=== PATIENT | female | born 1965 | race Two or more races ===

== ENCOUNTER 2016-06-30 08:41 | Outpatient (CLI) | payer OTHER, MEDICAID | END 2016-06-30 08:42 | disposition home or self-care (01) | DX: N18.9 Chronic kidney disease, unspecified (principal); D63.1 Anemia in chronic kidney disease; E11.65 Type 2 diabetes mellitus with hyperglycemia ==

== ENCOUNTER 2016-08-01 13:01 | Outpatient (CLI) | payer OTHER, MEDICAID | END 2016-08-01 13:02 | disposition home or self-care (01) | DX: N18.4 Chronic kidney disease, stage 4 (severe) (principal) ==

== ENCOUNTER 2016-10-07 09:48 | Outpatient (CLI) | payer MEDICAID, OTHER | END 2016-10-07 09:49 | disposition home or self-care (01) | DX: E11.65 Type 2 diabetes mellitus with hyperglycemia (principal) ==

== ENCOUNTER 2016-10-13 07:10 | Outpatient (CLI) | payer OTHER | END 2016-10-13 07:11 | disposition home or self-care (01) | DX: E87.5 Hyperkalemia (principal) ==

== ENCOUNTER 2016-11-18 10:28 | Outpatient (CLI) | payer MEDICAID, OTHER ==
[2016-11-18 13:05] LABS: HCT - HEMATOCRIT 31.7 % (37.0-47.0); HGB - HEMOGLOBIN 10.8 g/dL (12.0-16.0); MEAN CORPUSCULAR HEMOGLOBIN 31.7 pg (27.0-31.0); MEAN CORPUSCULAR HGB CONC 34.1 g/dL (32.0-36.0); MEAN CORPUSCULAR VOLUME 93.1 fL (81.0-99.0); MEAN PLATELET VOLUME 8.5 fL (7.9-10.8); RED BLOOD COUNT 3.41 10^6/uL (4.20-5.40); RED CELL DISTRIBUTION WIDTH 13.3 % (12.0-15.0); WHITE BLOOD COUNT 7.9 x10^3/uL (4.8-10.8)
== END 2016-11-18 10:29 | disposition home or self-care (01) ==
LOC: LAB.WCP 10:28
PROVIDERS: ATTEND Internal Medicine Nephrology
DX: R80.9 Proteinuria, unspecified (principal); D70.9 Neutropenia, unspecified
CPT/HCPCS: 36415; 82570; 84156; 85025

== ENCOUNTER 2017-01-10 08:10 | Outpatient (CLI) | payer OTHER ==
[2017-01-10 14:21] LABS: HEMOGLOBIN A1C 0.66 g/dL
[2017-01-10 14:25] LABS: BILIRUBIN,TOTAL 0.3 mg/dL (0.2-1.0); BUN - BLOOD UREA NITROGEN 41 mg/dL (6-20); CALCIUM 8.5 mg/dL (8.5-10.3); CARBON DIOXIDE - CO2 22 mmol/L (21-32); CHLORIDE 108 mmol/L (101-111); CHOL/HDL RATIO 3.5 (<4.4); CHOLESTEROL 136 mg/dL; CREATININE 2.5 mg/dL (0.4-1.0); GFR - MDRD 20 (>89); GLUCOSE 184 mg/dL (70-100); HDL CHOLESTEROL 39 mg/dL; LDL/HDL RATIO 1.7 (<4.4); POTASSIUM 4.6 mmol/L (3.5-5.0); SODIUM 138 mmol/L (135-145); TOTAL PROTEIN 6.7 g/dL (6.7-8.2); TRIGLYCERIDES 145 mg/dL; VLDL CHOLESTEROL 29 mg/dL
== END 2017-01-10 08:11 | disposition home or self-care (01) ==
LOC: LAB.WCP 08:10
PROVIDERS: ATTEND Family Medicine
DX: E11.65 Type 2 diabetes mellitus with hyperglycemia (principal)
CPT/HCPCS: 36415; 80053; 80061; 83036

== ENCOUNTER 2017-12-08 08:05 | Outpatient (CLI) | payer OTHER ==
[2017-12-08 13:26] LABS: BASOPHILS # (AUTO) 0.1 10^3/uL (0.0-0.1); BASOPHILS % (AUTO) 1.3 %; EOSINOPHILS # (AUTO) 0.6 10^3/uL (0.0-0.7); EOSINOPHILS % (AUTO) 7.7 %; HGB - HEMOGLOBIN 9.6 g/dL (12.0-16.0); LYMPHOCYTES # (AUTO) 1.6 10^3/uL (1.5-3.5); LYMPHOCYTES % (AUTO) 20.8 %; MEAN CORPUSCULAR HEMOGLOBIN 32.2 pg (27.0-31.0); MEAN CORPUSCULAR HGB CONC 33.5 g/dL (32.0-36.0); MEAN CORPUSCULAR VOLUME 96.3 fL (81.0-99.0); MONOCYTES # (AUTO) 0.5 10^3/uL (0.0-1.0); MONOCYTES % (AUTO) 6.4 %; NEUTROPHILS # (AUTO) 4.9 10^3/uL (1.5-6.6); NEUTROPHILS % (AUTO) 63.8 %; PLT - PLATELET COUNT 408 10^3/uL (130-450); RED BLOOD COUNT 2.98 10^6/uL (4.20-5.40); RED CELL DISTRIBUTION WIDTH 13.7 % (12.0-15.0); WHITE BLOOD COUNT 7.7 x10^3/uL (4.8-10.8)
[2017-12-08 13:46] LABS: ALBUMIN 2.8 g/dL (3.2-5.5); ALBUMIN/GLOBULIN RATIO 0.8 (1.0-2.2); ALKALINE PHOSPHATASE 67 IU/L (42-121); ALT ALANINE AMINOTRANSFERASE 13 IU/L (10-60); AST ASPARTATE AMINOTRANSFERASE 19 IU/L (10-42); BILIRUBIN,TOTAL 0.6 mg/dL (0.2-1.0); BUN - BLOOD UREA NITROGEN 41 mg/dL (6-20); CALCIUM 8.2 mg/dL (8.5-10.3); CARBON DIOXIDE - CO2 20 mmol/L (21-32); CHLORIDE 108 mmol/L (101-111); CHOL/HDL RATIO 5.3 (<4.4); CHOLESTEROL 243 mg/dL; CREATININE 2.8 mg/dL (0.4-1.0); GFR - MDRD 18 (>89); GLUCOSE 169 mg/dL (70-100); HDL CHOLESTEROL 46 mg/dL; LDL CHOLESTEROL,CALCULATED 130 mg/dL; LDL/HDL RATIO 2.8 (<4.4); SODIUM 136 mmol/L (135-145); TOTAL PROTEIN 6.3 g/dL (6.7-8.2); VLDL CHOLESTEROL 67 mg/dL
[2017-12-08 13:55] LABS: THYROID STIMULATING HORMONE 3.12 uIU/mL (0.34-5.60)
[2017-12-08 14:21] LABS: HB2 TOTAL 10.3 g/dL; HEMOGLOBIN A1C 0.6 g/dL; HEMOGLOBIN A1C % 7.5 % (4.6-6.2)
== END 2017-12-08 08:06 | disposition home or self-care (01) ==
LOC: LAB.WCP 08:05
PROVIDERS: ATTEND Family Medicine
DX: E11.9 Type 2 diabetes mellitus without complications (principal)
CPT/HCPCS: 36415; 80053; 80061; 82607; 83036; 83721; 84443; 85025

== ENCOUNTER 2018-01-23 07:26 | Outpatient (CLI) | payer OTHER ==
[2018-01-23 12:41] LABS: BASOPHILS # (AUTO) 0.1 10^3/uL (0.0-0.1); BASOPHILS % (AUTO) 1.2 %; EOSINOPHILS # (AUTO) 0.5 10^3/uL (0.0-0.7); EOSINOPHILS % (AUTO) 7.6 %; HGB - HEMOGLOBIN 9.4 g/dL (12.0-16.0); LYMPHOCYTES # (AUTO) 1.5 10^3/uL (1.5-3.5); LYMPHOCYTES % (AUTO) 20.5 %; MEAN CORPUSCULAR HEMOGLOBIN 32.4 pg (27.0-31.0); MEAN CORPUSCULAR HGB CONC 34.2 g/dL (32.0-36.0); MEAN CORPUSCULAR VOLUME 94.8 fL (81.0-99.0); MEAN PLATELET VOLUME 8.2 fL (7.9-10.8); MONOCYTES # (AUTO) 0.4 10^3/uL (0.0-1.0); NEUTROPHILS # (AUTO) 4.6 10^3/uL (1.5-6.6); NEUTROPHILS % (AUTO) 64.7 %; PLT - PLATELET COUNT 425 10^3/uL (130-450); RED CELL DISTRIBUTION WIDTH 13.7 % (12.0-15.0); WHITE BLOOD COUNT 7.1 x10^3/uL (4.8-10.8)
[2018-01-23 13:18] LABS: CALCIUM 8.4 mg/dL (8.5-10.3); CREATININE 3.1 mg/dL (0.4-1.0); PHOSPHORUS 6.1 mg/dL (2.5-4.6)
[2018-01-23 13:35] LABS: FERRITIN 39.6 ng/mL (11.0-306.8)
[2018-01-23 13:38] LABS: CRP - C-REACTIVE PROTEIN 1.6 mg/dL (0-1.0); URIC ACID 8.5 mg/dL (2.6-7.2)
== END 2018-01-23 07:27 | disposition home or self-care (01) ==
LOC: LAB.WCP 07:26
PROVIDERS: ATTEND Family Medicine
DX: N18.4 Chronic kidney disease, stage 4 (severe) (principal)
CPT/HCPCS: 36415; 80048; 81001; 82306; 82570; 82728; 83540; 83970; 84100; 84156; 84466; 84550; 85025; 85651; 86140; 87086

== ENCOUNTER 2018-04-02 02:38 | Emergency (ER) | payer MEDICAID, OTHER ==
[2018-04-02] MEDS ORDERED: PROCHLORPERAZINE INJ 10 MG in SODIUM CHLORIDE 0.9% 50 ML IV ONE (03:13)
[2018-04-02] MEDS ORDERED: DEXAMETHASONE 10 MG/ML VIAL IVP STA (03:13)
[2018-04-02] MEDS ORDERED: SODIUM CHLORIDE 0.9% 1,000 ML IV ONE (03:13)
[2018-04-02] MEDS ORDERED: diphenhydrAMINE INJ 50 MG/ML VIAL IVP STA (03:13)
[2018-04-02 03:36] LABS: CALCIUM 8.5 mg/dL (8.5-10.3); CREATININE 3.2 mg/dL (0.4-1.0)
--- NOTE | 2018-04-02 03:49 | ED Physician Documentation ---
PD HPI HEADACHE - Stated complaint Stated Complaint: HEADACHE - Chief complaint Chief Complaint: Neuro - History obtained from History obtained from: Patient - History of Present Illness Timing - onset: How many hours ago (12) Timing - details: Gradual onset, Still present Location: Global Quality: Aching Associated symptoms: Nausea, Vomiting Worsened by: Light, Noise Similar symptoms before: Has not had sx before (History of migraine headaches. Last episode was 1 week ago.) - Additional information Additional information: The patient is a 52-year-old female with history of migraine headaches, who presents with global headache that started about 12 hours prior to arrival. She reports associated nausea, vomiting, and photosensitivity. She denies fever, abdominal pain, numbness or weakness. She usually takes sumatriptan for headaches, but today she is not able to keep down the medicine because of vomiting. Review of Systems Constitutional: denies: Fever Eyes: reports: Photophobia Ears: denies: Tinnitus/ringing Nose: denies: Congestion Throat: denies: Sore throat Cardiac: denies: Chest pain / pressure Respiratory: denies: Dyspnea, Cough GI: reports: Nausea, Vomiting. denies: Abdominal Pain : denies: Dysuria Skin: denies: Rash Musculoskeletal: denies: Neck pain, Back pain Neurologic: reports: Headache. 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: Tonsil/Adenoidectomy - Present Medications Home Medications: Ambulatory Orders Medication Instructions Recorded Confirmed PARoxetine [Paxil] 20 mg DAILY 07/16/14 03/06/15 Albuterol Sulfate [Albuterol 2 puffs IH PRN 03/06/15 03/06/15 Sulfate Hfa] Carvedilol 6.25 mg PO 04/02/18 Insulin Degludec [Tresiba 44 unit SUBQ DAILY 04/02/18 Flextouch U-100] Insulin Regular Human [NovoLIN R] 20 unit SUBQ Q6H 04/02/18 Iron,Carbonyl [Iron Chews] 15 mg PO 04/02/18 [place]-3S/Dha/Epa/Fish Oil/D3 1 each PO 04/02/18 04/02/18 [[place]-3 + D Softgel] Ondansetron Odt [Zofran] 4 mg TL Q6H PRN #10 tablet 04/02/18 Sumatriptan Succinate [Imitrex] 100 mg PO PRN 04/02/18 cloNIDine [Catapres] 0.1 mg PO DAILY 04/02/18 - Allergies Allergies/Adverse Reactions: Allergies Allergy/AdvReac Type Severity Reaction Status Date / Time Sulfa (Sulfonamide Allergy Rash Verified 04/02/18 02:46 Antibiotics) tetracycline Allergy Rash Verified 04/02/18 02:46 - Social History Does the pt smoke?: Yes Smoking Status: Current every day smoker Does the pt drink ETOH?: Yes Does the pt have substance abuse?: No PD ED PE NORMAL - Vitals Vital signs reviewed: Yes (hypertensive) - General General: Alert and oriented X 3, Well developed/nourished - HEENT HEENT: Atraumatic, PERRL, EOMI, Pharynx benign, Other (fundi without papilladema.) - Neck Neck: Supple, no meningeal sign, No adenopathy - Cardiac Cardiac: RRR - Respiratory Respiratory: No respiratory distress, Clear bilaterally - Abdomen Abdomen: Soft, Non tender - Back Back: No CVA TTP - Derm Derm: No rash - Extremities Extremities: No edema, No calf tenderness / cord - Neuro Neuro: Alert and oriented X 3, No motor deficit, No sensory deficit Results - Vitals Vitals: Vital Signs - 24 hr 04/02/18 02:41 Temperature 36.2 C L Heart Rate 107 H Respiratory 20 Rate Blood Pressure 166/120 H O2 Saturation 97 Oxygen O2 Source Room air - Labs Labs: Laboratory Tests 04/02/18 03:21 Sodium 140 Potassium 4.6 Chloride 104 Carbon Dioxide 25 Anion Gap 11.0 BUN 47 H Creatinine 3.2 H Estimated GFR (MDRD) 15 L Glucose 148 H Calcium 8.5 PD MEDICAL DECISION MAKING - ED course Complexity details: reviewed results, re-evaluated patient, considered differential, d/w patient, d/w family ED course: The patient's presentation is most consistent with recurrent episodic headache. Her presentation does not suggest meningitis, intracerebral hemorrhage, temporal arteritis, or pseudotumor cerebri. I discussed with her the expected course of illness, symptomatic treatment and outpatient follow-up, as well as potentially worrisome signs or symptoms that should prompt reevaluation in the emergency department. She is being discharged with prescription for Zofran odt. Departure - Departure Disposition: 01 Home, Self Care Clinical Impression: Dehydration Migraine Qualifiers: Migraine type: unspecified Status migrainosus presence: without status migrainosus Intractability: not intractable Qualified Code(s): G43.909 - Migraine, unspecified, not intractable, without status migrainosus Condition: Stable Instructions: ED Headache Migraine Follow-Up: Monae Nunez DO [Primary Care Provider] - Prescriptions: Ondansetron Odt [Zofran] 4 mg TL Q6H PRN #10 tablet PRN Reason: Nausea / Vomiting Comments: Drink plenty of fluids. Continue using sumatriptan as previously prescribed if needed for headache. You can use Zofran as prescribed if needed for nausea. Follow-up with your primary physician within 1-2 weeks. Call to schedule appointment. Return to the emergency department if you develop increasing headache, persistent vomiting, or otherwise worsening symptoms.
[2018-04-02] MEDS ORDERED: ACETAMINOPHEN 1,000 MG/100 ML 100 ML IV STA (04:24)
[2018-04-02 05:38] VITALS: BP 214/115
== END 2018-04-02 06:20 | disposition home or self-care (01) ==
LOC: ED 02:38
DX: G43.909 Migraine, unspecified, not intractable, without status migrainosus (principal); R11.2 Nausea with vomiting, unspecified; I12.9 Hypertensive chronic kidney disease with stage 1 through stage 4 chronic kidney disease, or unspecified chronic kidney disease; E11.22 Type 2 diabetes mellitus with diabetic chronic kidney disease; N18.4 Chronic kidney disease, stage 4 (severe); Z79.4 Long term (current) use of insulin; F17.200 Nicotine dependence, unspecified, uncomplicated
CPT/HCPCS: 36415; 80048; 99283

== ENCOUNTER 2018-04-02 17:42 | Emergency (ER) | payer OTHER ==
[2018-04-02] MEDS ORDERED: diphenhydrAMINE INJ 50 MG/ML VIAL IVP STA (18:06)
[2018-04-02] MEDS ORDERED: SODIUM CHLORIDE 0.9% 1,000 ML IV ONE (18:06)
[2018-04-02] MEDS ORDERED: METOCLOPRAMIDE 10 MG/2 ML VIAL IVP STA (18:06)
[2018-04-02 18:56] LABS: BASOPHILS % (AUTO) 0.5 %; HGB - HEMOGLOBIN 10.9 g/dL (12.0-16.0); LYMPHOCYTES # (AUTO) 0.7 10^3/uL (1.5-3.5); LYMPHOCYTES % (AUTO) 7.5 %; MEAN CORPUSCULAR HEMOGLOBIN 31.6 pg (27.0-31.0); MEAN CORPUSCULAR HGB CONC 34.2 g/dL (32.0-36.0); MEAN CORPUSCULAR VOLUME 92.4 fL (81.0-99.0); MEAN PLATELET VOLUME 7.6 fL (7.9-10.8); MONOCYTES # (AUTO) 0.2 10^3/uL (0.0-1.0); MONOCYTES % (AUTO) 1.7 %; NEUTROPHILS # (AUTO) 8.4 10^3/uL (1.5-6.6); NEUTROPHILS % (AUTO) 90.3 %; PLT - PLATELET COUNT 440 10^3/uL (130-450); RED BLOOD COUNT 3.44 10^6/uL (4.20-5.40); RED CELL DISTRIBUTION WIDTH 13.7 % (12.0-15.0); WHITE BLOOD COUNT 9.3 x10^3/uL (4.8-10.8)
[2018-04-02 19:15] LABS: ALBUMIN 3.1 g/dL (3.2-5.5); ALBUMIN/GLOBULIN RATIO 0.8 (1.0-2.2); BILIRUBIN,TOTAL 0.5 mg/dL (0.2-1.0); CALCIUM 8.3 mg/dL (8.5-10.3); CREATININE 3.2 mg/dL (0.4-1.0); TOTAL PROTEIN 7.2 g/dL (6.7-8.2)
--- NOTE | 2018-04-02 19:33 | XRAY Report ---
Reason: vomiting Procedure Date: 04/02/2018 Accession Number: [id number] / [id number] Procedure: XR - Abdomen Acute CPT Code: FULL RESULT: EXAM: ABDOMINAL SERIES AND PA CHEST EXAM DATE: 04/02/2018 07:08 PM. CLINICAL HISTORY: Vomiting. COMPARISON: CHEST 2 VIEW PA/LAT 10/02/2017 2:12 PM. TECHNIQUE: 2 views abdomen and 1 view chest. FINDINGS: CHEST: Lungs/Pleura: Mild streaky atelectasis in the left lung base. Otherwise no consolidation. No pleural effusion or pneumothorax. Mediastinum: Heart size is normal. ABDOMEN: Bowel Gas Pattern: Nonobstructive bowel gas pattern. Multiple phleboliths in the pelvis. Cholecystectomy clips projecting over the right upper abdominal quadrant. Free Air: None. Other: Calcified densities projecting over the superior glenohumeral joint on the left may represent intracapsular bodies such as synovial osteochondromatosis. These may also represent calcifications in the rotator cuff. IMPRESSION: Streaky left lung base atelectasis. Otherwise no acute cardiopulmonary findings. Nonobstructive bowel gas pattern. RADIA
[2018-04-02] MEDS ORDERED: INSULIN REGULAR HUMAN 100 UNIT/1 ML 10 ML MDV IVP STA ×2 (19:48→20:43)
[2018-04-02 20:40] VITALS: BP 185/94
[2018-04-02] MEDS ORDERED: ONDANSETRON 4 MG/2 ML VIAL IVP STA (20:52)
--- NOTE | 2018-04-02 20:55 | ED Physician Documentation ---
History of Present Illness - Stated complaint Stated Complaint: VOMITING - Chief complaint Chief Complaint: General - Additonal information Additional information: 52-year-old female presents the emergency department for evaluation of vomiting. The patient Took her Zofran but had no significant improvement. The patient denies any active abdominal pain. The patient has a history of migraines, currently she has no active headache, neck pain, chest pain, abdominal pain. The patient denies associated diarrhea. The patient just reports episodes of nausea with eating which are followed by vomiting. The patient has not taken her medications today secondary to the vomiting. Symptoms are described as moderate. No triggering factors. No relieving factors. Review of Systems Constitutional: reports: Fatigue. denies: Fever, Chills Eyes: denies: Loss of vision, Photophobia Nose: denies: Rhinorrhea / runny nose, Congestion Throat: denies: Sore throat Cardiac: denies: Chest pain / pressure Respiratory: denies: Dyspnea GI: reports: Nausea, Vomiting. 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 HEENT: Tonsil/Adenoidectomy - Present Medications Home Medications: Ambulatory Orders Medication Instructions Recorded Confirmed PARoxetine [Paxil] 20 mg DAILY 07/16/14 03/06/15 Acetaminophen [Tylenol Extra 04/02/18 Strength] Baclofen 04/02/18 Carvedilol 6.25 mg PO 04/02/18 Cinnamon Bark [Cinnamon] 04/02/18 Insulin Degludec [Tresiba 44 unit SUBQ DAILY 04/02/18 Flextouch U-100] Insulin Regular Human [NovoLIN R] 20 unit SUBQ Q6H 04/02/18 Iron,Carbonyl [Iron Chews] 15 mg PO 04/02/18 Loratadine 04/02/18 Metoclopramide [Reglan] 10 mg PO Q6H PRN #30 tablet 04/02/18 Multivitamin [Multivitamins] 04/02/18 [place]-3/Dha/Epa/Fish Oil [[place] 3 04/02/18 500 Softgel] [place]-3S/Dha/Epa/Fish Oil/D3 1 each PO 04/02/18 04/02/18 [[place]-3 + D Softgel] Omeprazole 04/02/18 Ondansetron Odt [Zofran] 4 mg TL Q6H PRN #10 tablet 04/02/18 PARoxetine HCl [Paroxetine HCl] 04/02/18 Pramipexole Di-HCl [Mirapex] 04/02/18 Sumatriptan Succinate [Imitrex] 100 mg PO PRN 04/02/18 cloNIDine [Catapres] 0.1 mg PO DAILY 04/02/18 dilTIAZem HCl [Diltiazem 24Hr ER] 04/02/18 diphenhydrAMINE [Benadryl] 04/02/18 - Allergies Allergies/Adverse Reactions: Allergies Allergy/AdvReac Type Severity Reaction Status Date / Time Sulfa (Sulfonamide Allergy Rash Verified 04/02/18 17:49 Antibiotics) tetracycline Allergy Rash Verified 04/02/18 17:49 - Social History Does the pt smoke?: No Smoking Status: Former smoker Does the pt drink ETOH?: No Does the pt have substance abuse?: No - Immunizations Immunizations are current?: Yes - POLST Patient has POLST: No PD ED PE NORMAL - General General: Alert and oriented X 3, No acute distress - HEENT HEENT: Atraumatic, PERRL, EOMI, Ears normal - Neck Neck: Supple, no meningeal sign - Cardiac Cardiac: Other (Regular tachycardia) - Respiratory Respiratory: No respiratory distress, Clear bilaterally - Abdomen Abdomen: Soft, Non tender, Non distended - Derm Derm: Normal color - Extremities Extremities: No deformity, Normal ROM s pain - Neuro Neuro: Alert and oriented X 3, Normal speech - Psych Psych: Normal mood Results - Vitals Vitals: Vital Signs - 24 hr 04/02/18 04/02/18 04/02/18 17:45 20:03 20:06 Temperature 36.5 C 36.7 C Heart Rate 116 H 98 Respiratory 16 5 L Rate Blood Pressure 156/103 H 178/92 H O2 Saturation 96 97 04/02/18 04/02/18 20:10 20:39 Temperature Heart Rate 105 H 103 H Respiratory 18 16 Rate Blood Pressure 190/106 H 185/94 H O2 Saturation 96 99 Oxygen O2 Source Room air - EKG (time done) 18:12 Rate: Rate (enter#) Rhythm: Sinus tachycardia Intervals: Normal [place] QRS: Normal Ischemia: Normal ST segments Other comments: Other comments (No acute ischemic changes) - Labs Labs: Laboratory Tests 04/02/18 04/02/18 04/02/18 18:35 18:35 18:35 WBC 9.3 RBC 3.44 L Hgb 10.9 L Hct 31.8 L MCV 92.4 MCH 31.6 H MCHC 34.2 RDW 13.7 Plt Count 440 MPV 7.6 L Neut # (Auto) 8.4 H Lymph # (Auto) 0.7 L [place] # (Auto) 0.2 Eos # (Auto) 0.0 Baso # (Auto) 0.0 Absolute Nucleated RBC 0.00 Nucleated RBC % 0.0 Sodium 136 Potassium 4.8 Chloride 101 Carbon Dioxide 23 Anion Gap 12.0 BUN 49 H Creatinine 3.2 H Estimated GFR (MDRD) 15 L Glucose 418 H POC Whole Bld Glucose Calcium 8.3 L Total Bilirubin 0.5 AST 24 ALT 15 Alkaline Phosphatase 82 Troponin I < 0.04 Total Protein 7.2 Albumin 3.1 L Globulin 4.1 Albumin/Globulin Ratio 0.8 L Lipase 43 04/02/18 20:15 WBC RBC Hgb Hct MCV MCH MCHC RDW Plt Count MPV Neut # (Auto) Lymph # (Auto) [place] # (Auto) Eos # (Auto) Baso # (Auto) Absolute Nucleated RBC Nucleated RBC % Sodium Potassium Chloride Carbon Dioxide Anion Gap BUN Creatinine Estimated GFR (MDRD) Glucose POC Whole Bld Glucose 341 H Calcium Total Bilirubin AST ALT Alkaline Phosphatase Troponin I Total Protein Albumin Globulin Albumin/Globulin Ratio Lipase - Rads (name of study) acute abdominal series Radiology: Final report received PD MEDICAL DECISION MAKING - ED course ED course: The patient has no abdominal pain on examination so currently I do not think a CT scan would be of much utility. The patient was seen earlier for headache and currently has no headache related symptoms. The patient only has vomiting and nausea with eating. The patient was treated in the emergency department and has been able to tolerate oral liquids and solids. The patient still denies any active abdominal pain. The patient currently appears appropriate for discharge and ongoing outpatient management. I advised close follow-up with primary care for ongoing blood sugar management. The patient understands and agrees. I discussed warning signs and recommended returning to the emergency department for any worsening or any concerns. Departure - Departure Disposition: 01 Home, Self Care Clinical Impression: Hyperglycemia Vomiting Qualifiers: Vomiting type: unspecified Vomiting Intractability: intractable Nausea presence: with nausea Qualified Code(s): R11.2 - Nausea with vomiting, unspecified Condition: Good Instructions: Hyperglycemia, ED Nausea Vomiting Follow-Up: Monae Nunez DO [Primary Care Provider] - Within 1 week Prescriptions: Metoclopramide [Reglan] 10 mg PO Q6H PRN #30 tablet PRN Reason: Nausea / Vomiting Comments: Please follow-up with primary care. Please return to the emergency department for worsening symptoms or any concerns
== END 2018-04-02 21:25 | disposition home or self-care (01) ==
LOC: ED 17:42
DX: E11.65 Type 2 diabetes mellitus with hyperglycemia (principal); R11.2 Nausea with vomiting, unspecified; R00.0 Tachycardia, unspecified; G43.909 Migraine, unspecified, not intractable, without status migrainosus; I12.9 Hypertensive chronic kidney disease with stage 1 through stage 4 chronic kidney disease, or unspecified chronic kidney disease; E11.22 Type 2 diabetes mellitus with diabetic chronic kidney disease; N18.4 Chronic kidney disease, stage 4 (severe); Z79.4 Long term (current) use of insulin; F17.200 Nicotine dependence, unspecified, uncomplicated
CPT/HCPCS: 36415; 74022; 80048; 80053; 83690; 84484; 85025; 93005; 96361; 96365; 96367; 96374; 96375; 99283; 99284; J0131; J1200; J1815; J2765; J7040

== ENCOUNTER 2018-04-16 21:29 | Emergency (ER) | payer OTHER ==
[2018-04-16 21:47] VITALS: BP 159/106
== END 2018-04-16 22:50 | disposition left against medical advice (07) ==
LOC: ED 21:29
DX: Z53.21 Procedure and treatment not carried out due to patient leaving prior to being seen by health care provider (principal)

== ENCOUNTER 2018-05-13 19:18 | Emergency (ER) | payer OTHER ==
[2018-05-13] MEDS ORDERED: NITROGLYCERIN 2% PASTE TOP STA (19:50)
--- NOTE | 2018-05-13 19:54 | ED Physician Documentation ---
History of Present Illness - Stated complaint Stated Complaint: SOA/VOMITING - Chief complaint Chief Complaint: General - History obtained from History obtained from: Patient - History of Present Illness Timing: Today (Has DMII and CKD4, stopped lasix in Feb d/t poor renal function. 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 Now with 1 day increased BP and pedal edmea with orthopnea. No CP.) Review of Systems Ten Systems: 10 systems reviewed and negative Constitutional: reports: Fatigue. denies: Fever, Chills Cardiac: reports: Pedal edema. denies: Chest pain / pressure, Palpitations, Calf pain Respiratory: reports: Dyspnea. denies: Cough GI: reports: Abdominal Swelling. 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/Adenoidectomy - Present Medications Home Medications: Ambulatory Orders Medication Instructions Recorded Confirmed PARoxetine [Paxil] 20 mg DAILY 07/16/14 03/06/15 Acetaminophen [Tylenol Extra 04/02/18 Strength] Baclofen 04/02/18 Carvedilol 6.25 mg PO 04/02/18 Cinnamon Bark [Cinnamon] 04/02/18 Insulin Degludec [Tresiba 44 unit SUBQ DAILY 04/02/18 Flextouch U-100] Insulin Regular Human [NovoLIN R] 20 unit SUBQ Q6H 04/02/18 Iron,Carbonyl [Iron Chews] 15 mg PO 04/02/18 Loratadine 04/02/18 Metoclopramide [Reglan] 10 mg PO Q6H PRN #30 tablet 04/02/18 Multivitamin [Multivitamins] 04/02/18 [place]-3/Dha/Epa/Fish Oil [[place] 3 04/02/18 500 Softgel] [place]-3S/Dha/Epa/Fish Oil/D3 1 each PO 04/02/18 04/02/18 [[place]-3 + D Softgel] Omeprazole 04/02/18 Ondansetron Odt [Zofran] 4 mg TL Q6H PRN #10 tablet 04/02/18 PARoxetine HCl [Paroxetine HCl] 04/02/18 Pramipexole Di-HCl [Mirapex] 04/02/18 Sumatriptan Succinate [Imitrex] 100 mg PO PRN 04/02/18 cloNIDine [Catapres] 0.1 mg PO DAILY 04/02/18 dilTIAZem HCl [Diltiazem 24Hr ER] 04/02/18 Furosemide [Lasix] 20 mg PO DAILY #4 tablet 05/13/18 Isosorbide Mononitrate ER [Imdur] 60 mg PO DAILY #30 tablet 05/13/18 Ondansetron Odt [Zofran] 4 mg TL Q6H PRN #10 tablet 05/13/18 hydrALAZINE [Apresoline] 10 mg PO DAILY 05/13/18 - Allergies Allergies/Adverse Reactions: Allergies Allergy/AdvReac Type Severity Reaction Status Date / Time Sulfa (Sulfonamide Allergy Rash Verified 05/13/18 19:29 Antibiotics) tetracycline Allergy Rash Verified 05/13/18 19:29 - Social History Does the pt smoke?: No Smoking Status: Former smoker Does the pt drink ETOH?: No Does the pt have substance abuse?: No - Family History Family history: reports: Non contributory - Immunizations Immunizations are current?: Yes - POLST Patient has POLST: No PD ED PE NORMAL - Vitals Vital signs reviewed: Yes - General General: Alert and oriented X 3, No acute distress - HEENT HEENT: PERRL, EOMI - Neck Neck: Supple, no meningeal sign, No bony TTP, No JVD - Cardiac Cardiac: RRR, No murmur - Respiratory Respiratory: No respiratory distress, Clear bilaterally - Abdomen Abdomen: Normal bowel sounds, Soft, Non tender - Back Back: No CVA TTP, No spinal TTP - Extremities Extremities: Other (3+ B pitting pedal edema) - Neuro Neuro: Alert and oriented X 3, Normal speech - Psych Psych: Normal mood, Normal affect Results - Vitals Vitals: Vital Signs - 24 hr 05/13/18 05/13/18 19:25 20:17 Temperature 36.1 C L Heart Rate 86 91 Respiratory 18 18 Rate Blood Pressure 202/78 H 169/88 H O2 Saturation 97 96 Oxygen O2 Source Room air - EKG (time done) 2003 Rate: Rate (enter#) (87) Rhythm: NSR [place]: Normal Intervals: Normal [place] QRS: Normal Ischemia: Normal ST segments Computer interpretation: Agree with computer - Labs Labs: Laboratory Tests 05/13/18 05/13/18 05/13/18 19:59 19:59 19:59 WBC 8.4 RBC 2.83 L Hgb 8.9 L Hct 26.7 L MCV 94.3 MCH 31.3 H MCHC 33.2 RDW 13.8 Plt Count 373 MPV 7.2 L Neut # (Auto) 6.2 Lymph # (Auto) 1.3 L [place] # (Auto) 0.5 Eos # (Auto) 0.3 Baso # (Auto) 0.1 Absolute Nucleated RBC 0.00 Nucleated RBC % 0.0 Sodium 138 Potassium 4.7 Chloride 108 Carbon Dioxide 22 Anion Gap 8.0 BUN 46 H Creatinine 3.5 H Estimated GFR (MDRD) 14 L Glucose 90 Calcium 7.7 L Phosphorus 4.5 Magnesium 1.7 Total Bilirubin 0.3 AST 21 ALT 17 Alkaline Phosphatase 67 Troponin I < 0.04 B-Natriuretic Peptide Total Protein 6.6 L Albumin 3.2 Globulin 3.4 Albumin/Globulin Ratio 0.9 L Lipase 44 05/13/18 19:59 WBC RBC Hgb Hct MCV MCH MCHC RDW Plt Count MPV Neut # (Auto) Lymph # (Auto) [place] # (Auto) Eos # (Auto) Baso # (Auto) Absolute Nucleated RBC Nucleated RBC % Sodium Potassium Chloride Carbon Dioxide Anion Gap BUN Creatinine Estimated GFR (MDRD) Glucose Calcium Phosphorus Magnesium Total Bilirubin AST ALT Alkaline Phosphatase Troponin I B-Natriuretic Peptide 54 Total Protein Albumin Globulin Albumin/Globulin Ratio Lipase PD MEDICAL DECISION MAKING - ED course ED course: 52-year-old woman presents with fluid overload and nausea. The nausea is kind of a chronic issue and she requested Zofran for same. There is no evidence of pulmonary edema. 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 Departure - Departure Disposition: 01 Home, Self Care Clinical Impression: Anasarca associated with disorder of kidney CKD (chronic kidney disease) Qualifiers: Chronic kidney disease stage: stage 4 (severe) Qualified Code(s): N18.4 - C hronic kidney disease, stage 4 (severe) Hypertension Qualifiers: Hypertension type: essential hypertension Qualified Code(s): I10 - Essential (primary) hypertension Condition: Good Record reviewed to determine appropriate education?: Yes Prescriptions: Furosemide [Lasix] 20 mg PO DAILY #4 tablet Isosorbide Mononitrate ER [Imdur] 60 mg PO DAILY #30 tablet Ondansetron Odt [Zofran] 4 mg TL Q6H PRN #10 tablet PRN Reason: Nausea / Vomiting Comments: Return for any new or worsening symptoms. Call your knife blade polisher tomorrow for arrange for follow-up and further evaluation and treatment.
[2018-05-13 20:08] LABS: BASOPHILS # (AUTO) 0.1 10^3/uL (0.0-0.1); BASOPHILS % (AUTO) 1.1 %; EOSINOPHILS # (AUTO) 0.3 10^3/uL (0.0-0.7); EOSINOPHILS % (AUTO) 3.8 %; HGB - HEMOGLOBIN 8.9 g/dL (12.0-16.0); LYMPHOCYTES # (AUTO) 1.3 10^3/uL (1.5-3.5); LYMPHOCYTES % (AUTO) 15.8 %; MEAN CORPUSCULAR HEMOGLOBIN 31.3 pg (27.0-31.0); MEAN CORPUSCULAR HGB CONC 33.2 g/dL (32.0-36.0); MEAN CORPUSCULAR VOLUME 94.3 fL (81.0-99.0); MEAN PLATELET VOLUME 7.2 fL (7.9-10.8); MONOCYTES # (AUTO) 0.5 10^3/uL (0.0-1.0); NEUTROPHILS # (AUTO) 6.2 10^3/uL (1.5-6.6); NEUTROPHILS % (AUTO) 73.3 %; PLT - PLATELET COUNT 373 10^3/uL (130-450); RED BLOOD COUNT 2.83 10^6/uL (4.20-5.40); RED CELL DISTRIBUTION WIDTH 13.8 % (12.0-15.0); WHITE BLOOD COUNT 8.4 x10^3/uL (4.8-10.8)
[2018-05-13 20:17] LABS: ALBUMIN 3.2 g/dL (3.2-5.5); ALBUMIN/GLOBULIN RATIO 0.9 (1.0-2.2); BILIRUBIN,TOTAL 0.3 mg/dL (0.2-1.0); CALCIUM 7.7 mg/dL (8.5-10.3); CREATININE 3.5 mg/dL (0.4-1.0); MAGNESIUM 1.7 mg/dL (1.7-2.8); PHOSPHORUS 4.5 mg/dL (2.5-4.6); TOTAL PROTEIN 6.6 g/dL (6.7-8.2)
--- NOTE | 2018-05-13 20:26 | XRAY Report ---
Reason: chf Procedure Date: 05/13/2018 Accession Number: [id number] / [id number] Procedure: XR - Chest 1 View X-Ray CPT Code: 85448 FULL RESULT: EXAM: CHEST RADIOGRAPHY EXAM DATE: 05/13/2018 08:04 PM. CLINICAL HISTORY: Chf. COMPARISON: ABDOMEN ACUTE 04/02/2018 6:54 PM. TECHNIQUE: 1 view. FINDINGS: Lungs/Pleura: No consolidative process. No curly B line or pneumothorax. Mediastinum: Cardiac silhouette is borderline in size. Other: None. IMPRESSION: 1. No significant interval change. No interstitial edema visualized. RADIA
[2018-05-13] MEDS ORDERED: FUROSEMIDE 40 MG/4 ML VIAL IVP STA (20:36)
[2018-05-13] MEDS ORDERED: ONDANSETRON 4 MG/2 ML VIAL IVP STA (20:43)
[2018-05-13 20:54] VITALS: BP 173/79
== END 2018-05-13 21:01 | disposition home or self-care (01) ==
LOC: ED 19:18
DX: N04.9 Nephrotic syndrome with unspecified morphologic changes (principal); E11.22 Type 2 diabetes mellitus with diabetic chronic kidney disease; I12.9 Hypertensive chronic kidney disease with stage 1 through stage 4 chronic kidney disease, or unspecified chronic kidney disease; N18.4 Chronic kidney disease, stage 4 (severe); Z79.4 Long term (current) use of insulin; R11.2 Nausea with vomiting, unspecified
CPT/HCPCS: 36415; 71045; 80053; 83690; 83735; 83880; 84100; 84484; 85025; 93005; 96374; 99283; A9270

== ENCOUNTER 2018-05-15 12:19 | Emergency (ER) | payer OTHER ==
--- NOTE | 2018-05-15 14:06 | ED Physician Documentation ---
History of Present Illness - Stated complaint Stated Complaint: MEDICATION REACTION - Chief complaint Chief Complaint: General - History obtained from History obtained from: Patient - History of Present Illness Timing: Other (Seen here Monday for fluid overload and HTN. Started on Lasix and imdur. She feels dizzy and out of sorts. On torsemide, hydralazine, diltiazem as well.) Review of Systems Ten Systems: 10 systems reviewed and negative Constitutional: reports: Fatigue. 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 HEENT: Tonsil/Adenoidectomy - Present Medications Home Medications: Ambulatory Orders Medication Instructions Recorded Confirmed RX: PARoxetine [Paxil] 20 mg DAILY 07/16/14 03/06/15 Acetaminophen [Tylenol Extra 04/02/18 Strength] Cinnamon Bark [Cinnamon] 04/02/18 Insulin Degludec [Tresiba 44 unit SUBQ DAILY 04/02/18 Flextouch U-100] Insulin Regular Human [NovoLIN R] 20 unit SUBQ Q6H 04/02/18 Iron,Carbonyl [Iron Chews] 15 mg PO 04/02/18 Metoclopramide [Reglan] 10 mg PO Q6H PRN #30 tablet 04/02/18 [place]-3S/Dha/Epa/Fish Oil/D3 1 each PO 04/02/18 04/02/18 [[place]-3 + D Softgel] RX: Baclofen 10 mg TID PRN 04/02/18 RX: Carvedilol 25 mg PO BID 04/02/18 RX: Loratadine 04/02/18 RX: Multivitamin [Multivitamins] 04/02/18 RX: Omeprazole 20 mg DAILY 04/02/18 RX: Pramipexole Di-HCl [Mirapex] 1 tab DAILY PM 04/02/18 Sumatriptan Succinate [Imitrex] 100 mg PO PRN 04/02/18 cloNIDine [Catapres] 0.1 mg PO DAILY 04/02/18 dilTIAZem HCl [Diltiazem 24Hr ER] 120 mg DAILY 04/02/18 Furosemide [Lasix] 20 mg PO DAILY #4 tablet 05/13/18 Isosorbide Mononitrate ER [Imdur] 60 mg PO DAILY #30 tablet 05/13/18 Ondansetron Odt [Zofran] 4 mg TL Q6H PRN #10 tablet 05/13/18 hydrALAZINE [Apresoline] 50 mg PO TID 05/13/18 RX: Torsemide 40 mg DAILY 05/15/18 05/15/18 - Allergies Allergies/Adverse Reactions: Allergies Allergy/AdvReac Type Severity Reaction Status Date / Time Sulfa (Sulfonamide Allergy Rash Verified 05/13/18 19:29 Antibiotics) tetracycline Allergy Rash Verified 05/13/18 19:29 - Social History Does the pt smoke?: No Smoking Status: Former smoker Does the pt drink ETOH?: No Does the pt have substance abuse?: No - Immunizations Immunizations are current?: Yes - POLST Patient has POLST: No PD ED PE NORMAL - Vitals Vital signs reviewed: Yes - General General: Alert and oriented X 3, No acute distress - HEENT HEENT: PERRL, EOMI - Neck Neck: Supple, no meningeal sign, No bony TTP - Cardiac Cardiac: RRR, No murmur - Respiratory Respiratory: No respiratory distress, Clear bilaterally - Abdomen Abdomen: Non tender - Extremities Extremities: Other (Trace LLE edema) - Neuro Neuro: Alert and oriented X 3, Normal speech Results - Vitals Vitals: Vital Signs - 24 hr 05/15/18 05/15/18 12:34 15:15 Temperature 37.2 C 37.0 C Heart Rate 92 90 Respiratory 16 19 Rate Blood Pressure 146/68 H 138/68 H O2 Saturation 95 95 Oxygen O2 Source Room air - EKG (time done) 1242 Rate: Rate (enter#) (87) Rhythm: NSR [place]: Normal Intervals: Normal [place] QRS: Normal Ischemia: Normal ST segments Computer interpretation: Agree with computer - Labs Labs: Laboratory Tests 05/15/18 14:20 Sodium 137 Potassium 5.0 Chloride 104 Carbon Dioxide 24 Anion Gap 9.0 BUN 54 H Creatinine 3.9 H Estimated GFR (MDRD) 12 L Glucose 203 H Calcium 8.1 L Magnesium 1.7 PD MEDICAL DECISION MAKING - ED course ED course: This is a 52-year-old woman with chronic renal insufficiency that is worsening who presents with improved shortness of breath after starting diuretics. Workup the other night including an chest x-ray and BNP showed no evidence of heart failure. Now with leg cramps as well. She does not feel like she is urinating much. She is not tracking her weight although I asked her to do that the other night. She feels like her current symptoms are related to the imdur. She is advised to continue the diuretics because they seem to be helping. Also she has a high normal potassium. She is to follow-up with her twist packer. Departure - Departure Disposition: Home, Self Care Clinical Impression: CKD (chronic kidney disease), Anasarca associated with disorder of kidney Record reviewed to determine appropriate education?: Yes Comments: Your labs are stable from Monday. As discussed you need to track your weight every day and document it for your twist packer and follow-up with your twist packer as soon as possible. If the long-acting nitroglycerin/Imdur is making you dizzy you can stop it for now. Discharge Date/Time: 05/15/18 15:15
[2018-05-15 14:34] LABS: CALCIUM 8.1 mg/dL (8.5-10.3); CREATININE 3.9 mg/dL (0.4-1.0); MAGNESIUM 1.7 mg/dL (1.7-2.8)
[2018-05-15 15:17] VITALS: BP 138/68
== END 2018-05-15 15:15 | disposition home or self-care (01) ==
LOC: ED 12:19
DX: E11.22 Type 2 diabetes mellitus with diabetic chronic kidney disease (principal); I12.9 Hypertensive chronic kidney disease with stage 1 through stage 4 chronic kidney disease, or unspecified chronic kidney disease; N18.9 Chronic kidney disease, unspecified; N04.9 Nephrotic syndrome with unspecified morphologic changes; Z79.4 Long term (current) use of insulin; Z87.891 Personal history of nicotine dependence
CPT/HCPCS: 36415; 80048; 83735; 93005; 99282; 99283

== ENCOUNTER 2018-08-21 11:12 | Outpatient (CLI) | payer OTHER | END 2018-08-21 11:13 | disposition home or self-care (01) | LOC: SC 11:12 | PROVIDERS: ATTEND Internal Medicine Pulmonary Disease | DX: G47.10 Hypersomnia, unspecified (principal); G47.8 Other sleep disorders; R06.83 Snoring; R41.89 Other symptoms and signs involving cognitive functions and awareness; F51.12 Insufficient sleep syndrome; G25.81 Restless legs syndrome | CPT/HCPCS: 99203; 99212 ==

== ENCOUNTER 2018-09-02 10:56 | Emergency (ER) | payer OTHER ==
[2018-09-02] MEDS ORDERED: ONDANSETRON 4 MG/2 ML VIAL IVP STA ×2 (11:46→12:46)
[2018-09-02] MEDS ORDERED: METOCLOPRAMIDE 10 MG/2 ML VIAL IVP STA (11:47)
--- NOTE | 2018-09-02 11:47 | ED Physician Documentation ---
History of Present Illness - Stated complaint Stated Complaint: POSS ALLERGIC REACTION/VOMITING - Chief complaint Chief Complaint: Abd Pain - History of Present Illness Pain level max: 5 - Additonal information Additional information: Patient is a 52-year-old female with history of end-stage renal disease, diabetes, hypertensionWho had a fistula placed in the left upper arm 2 days ago. Patient was prescribed oxycodone for pain control and reports that each time she takes oxycodone, although she takes with food, she experiences immediate nausea and vomiting. Patient is presenting today with concern for dehydration and persistent nausea and vomiting despite ODT Zofran and pill form of Reglan. Patient does not have any suppositories at home. Patient reports no problems with her fistula, including redness, swelling, drainage, or otherwise. Patient also denies actual abdominal pain, urine or stool changes, fever, difficulty breathing, or other concerns. Patient denies any particular improving or worsening factors to her complaints. Review of Systems Constitutional: denies: Fever GI: reports: Nausea, Vomiting. 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 HEENT: Tonsil/Adenoidectomy - Present Medications Home Medications: Ambulatory Orders Medication Instructions Recorded Confirmed PARoxetine [Paxil] 20 mg DAILY 07/16/14 03/06/15 Acetaminophen [Tylenol Extra 04/02/18 Strength] Baclofen 10 mg TID PRN 04/02/18 Carvedilol 25 mg PO BID 04/02/18 Cinnamon Bark [Cinnamon] 04/02/18 Insulin Degludec [Tresiba 44 unit SUBQ DAILY 04/02/18 Flextouch U-100] Insulin Regular Human [NovoLIN R] 20 unit SUBQ Q6H 04/02/18 Iron,Carbonyl [Iron Chews] 15 mg PO 04/02/18 Loratadine 04/02/18 Metoclopramide [Reglan] 10 mg PO Q6H PRN #30 tablet 04/02/18 Multivitamin [Multivitamins] 04/02/18 [place]-3S/Dha/Epa/Fish Oil/D3 1 each PO 04/02/18 04/02/18 [[place]-3 + D Softgel] Omeprazole 20 mg DAILY 04/02/18 Pramipexole Di-HCl [Mirapex] 1 tab DAILY PM 04/02/18 Sumatriptan Succinate [Imitrex] 100 mg PO PRN 04/02/18 cloNIDine [Catapres] 0.1 mg PO DAILY 04/02/18 dilTIAZem HCl [Diltiazem 24Hr ER] 120 mg DAILY 04/02/18 Furosemide [Lasix] 20 mg PO DAILY #4 tablet 05/13/18 Isosorbide Mononitrate ER [Imdur] 60 mg PO DAILY #30 tablet 05/13/18 Ondansetron Odt [Zofran] 4 mg TL Q6H PRN #10 tablet 05/13/18 hydrALAZINE [Apresoline] 50 mg PO TID 05/13/18 Torsemide 40 mg DAILY 05/15/18 05/15/18 Promethazine Sup [Phenergan Supp] 12.5 mg [place] Q8H #10 supp 09/02/18 - Allergies Allergies/Adverse Reactions: Allergies Allergy/AdvReac Type Severity Reaction Status Date / Time amlodipine Allergy Edema Verified 09/02/18 11:05 rosuvastatin [From Crestor] Allergy Headache Verified 09/02/18 11:05 Sulfa (Sulfonamide Allergy Rash Verified 09/02/18 11:05 Antibiotics) tetracycline Allergy Rash Verified 09/02/18 11:05 - Social History Does the pt smoke?: No Smoking Status: Former smoker Does the pt drink ETOH?: No Does the pt have substance abuse?: No - Immunizations Immunizations are current?: Yes - POLST Patient has POLST: No PD ED PE NORMAL - General General: Alert and oriented X 3, No acute distress, Well developed/nourished - HEENT HEENT: Atraumatic, EOMI, Moist mucous membranes, Pharynx benign, Dentition benign - Neck Neck: Supple, no meningeal sign - Cardiac Cardiac: RRR, No murmur, Other (Fistula in place over left upper arm with palpable thrill and mild ecchymosis surrounding with no signs of infection or other complications noted) - Respiratory Respiratory: No respiratory distress - Abdomen Abdomen: Normal bowel sounds, Soft, Non tender, Non distended - Derm Derm: Normal color, Warm and dry, Other (See above, but fistula and mild bruising over left upper arm) - Extremities Extremities: No deformity, No tenderness to palpate - Neuro Neuro: Alert and oriented X 3, No motor deficit - Psych Psych: Normal mood, Normal affect Results - Vitals Vitals: Vital Signs - 24 hr 09/02/18 09/02/18 11:00 13:13 Temperature 36.4 C L Heart Rate 86 87 Respiratory 20 18 Rate Blood Pressure 176/77 H 173/90 H O2 Saturation 95 96 Oxygen O2 Source Room air PD MEDICAL DECISION MAKING - ED course Complexity details: considered differential, d/w patient ED course: Most concerning for adverse reaction to oxycodone. Patient presents with complaint of persistent nausea and vomiting when taking oxycodone. Do not see significant signs of dehydration on exam, but given repeated vomiting, feel appropriate to give 1 L bolus. Patient does have end-stage renal disease, but is not currently on dialysis. Fistula was placed several days ago. Feel that she is safe to tolerate 1 L of fluid at this time. No issues with fistula are noted such as infection, drainage, or other complication. Palpable thrill is present. Abdominal exam is also benign and do not feel patient is experiencing actual intra-abdominal pathology, feel this is again related to medication side effects. Patient received multiple doses of antinausea medication and was able to tolerate oral intake in ED. Patient was ambulating throughout the ED without issue and requesting discharge home. Feel that she is safe to discharge and provided additional antiemetic medication, as well as recommended close follow- up with her primary care physician and dialysis.Patient voiced understanding and is comfortable with discharge plan. Departure - Departure Disposition: 01 Home, Self Care Clinical Impression: Nausea and vomiting Qualifiers: Vomiting type: unspecified Vomiting Intractability: non-intractable Qualified Code(s): R11.2 - Nausea with vomiting, unspecified Condition: Good Instructions: ED Nausea Vomiting Follow-Up: Monae Nunez DO [Primary Care Provider] - Within 3 Days Prescriptions: Promethazine Sup [Phenergan Supp] 12.5 mg VT Q8H #10 supp Comments: Recommend no longer using oxycodone as this is likely the source of your nausea and vomiting. Please continue to use Zofran as prescribed and if needed, please use suppository as prescribed. Also recommend appropriate hydration following any restrictions according to your renal disease. Please follow-up with your primary care physician in next 1-2 days, as well as your renal physician and any scheduled appointments for dialysis. Return to ED sooner if experience worsening symptoms or other concerns.
[2018-09-02] MEDS ORDERED: SODIUM CHLORIDE 0.9% 1,000 ML IV ONE (12:46)
[2018-09-02] MEDS ORDERED: ONDANSETRON 4 MG/2 ML VIAL ONE (12:52)
[2018-09-02 14:37] VITALS: BP 188/73
== END 2018-09-02 14:40 | disposition home or self-care (01) ==
LOC: ED 10:56
DX: R11.2 Nausea with vomiting, unspecified (principal); T40.2X5A Adverse effect of other opioids, initial encounter; I12.0 Hypertensive chronic kidney disease with stage 5 chronic kidney disease or end stage renal disease; E11.22 Type 2 diabetes mellitus with diabetic chronic kidney disease; N18.6 End stage renal disease; Z87.891 Personal history of nicotine dependence
CPT/HCPCS: 96374; 96376; 99283; J2765

== ENCOUNTER 2018-09-04 19:32 | Outpatient (CLI) | payer OTHER | END 2018-09-04 19:33 | disposition home or self-care (01) | LOC: SC 19:32 | PROVIDERS: ATTEND Internal Medicine Pulmonary Disease | DX: G47.10 Hypersomnia, unspecified (principal) | CPT/HCPCS: 95810 ==

== ENCOUNTER 2018-11-13 16:33 | Outpatient (CLI) | payer OTHER | END 2018-11-13 16:34 | disposition home or self-care (01) | LOC: SC 16:33 | PROVIDERS: ATTEND Nurse Practitioner Family | DX: R06.83 Snoring (principal); G47.00 Insomnia, unspecified; R53.83 Other fatigue | CPT/HCPCS: 99212; 99214 ==

== ENCOUNTER 2018-11-27 10:55 | Outpatient (CLI) | payer OTHER ==
--- NOTE | 2018-11-27 13:44 | Mammography Report ---
Reason: SCREENING GARRET Procedure Date: 11/27/2018 Accession Number: [id number] / [id number] Procedure: MGN - Screening Mammo Dig Bilat CPT Code: FULL RESULT: EXAM: Screening Mammo Dig Bilat DATE: 11/27/2018 11:40 AM CLINICAL HISTORY: Screening TECHNIQUE: (B) - Bilateral CC and MLO views were obtained. COMPARISON: None PARENCHYMAL PATTERN: (A) - The breasts demonstrate scattered fibroglandular densities bilaterally. FINDINGS: There are no suspicious masses, calcifications, or areas of distortion. IMPRESSION: Negative examination. BI-RADS category 1. RECOMMENDATION: (ANNUAL) - Recommend routine annual screening mammography. BI-RADS CATEGORY: (1) - Negative. STANDARD QUALIFYING STATEMENTS: 1. This examination was not reviewed with the aid of Computer-Aided Detection (CAD). 2. A negative or benign imaging report should not preclude biopsy if clinically suspicious findings are present. 3. Dense breasts may obscure an underlying neoplasm. 4. This examination was reviewed without the aid of 3D breast imaging (tomosynthesis).
== END 2018-11-27 10:56 | disposition home or self-care (01) ==
LOC: DI.N 10:55
DX: Z12.31 Encounter for screening mammogram for malignant neoplasm of breast (principal)
CPT/HCPCS: 77067

== ENCOUNTER 2018-12-26 13:27 | Outpatient (CLI) | payer OTHER | END 2018-12-26 13:28 | disposition EMS.NT | LOC: EMS 13:27 | PROVIDERS: ATTEND Surgery | DX: Z04.1 Encounter for examination and observation following transport accident (principal) ==

== ENCOUNTER 2019-01-14 12:09 | Emergency (ER) | payer MEDICARE, OTHER ==
[2019-01-14] MEDS ORDERED: TETANUS/DIPHTHERIA/PERTUSSIS 0.5 ML SYRINGE IM ONE (12:35)
[2019-01-14] MEDS ORDERED: AMOX/CLAV 500 MG/125 MG TABLET PO STA (12:36)
--- NOTE | 2019-01-14 12:39 | ED Physician Documentation ---
PD HPI LOWER EXT INJURY - Stated complaint Stated Complaint: LT TOE PX - Chief complaint Chief Complaint: Trauma Ext - History obtained from History obtained from: Patient - History of Present Illness PD HPI LOW EXT INJURY LOCATION: Left (This is a 53-year-old woman who is not up-to-date on tetanus. She is dialysis dependent. She was trimming her toenails on the left foot last night and nicked herself. There is quite a bit of bleeding especially from the third toe. She is also diabetic. Since last night she is also felt lightheaded which is worse if she stands up but present at rest. 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 HEENT: Tonsil/Adenoidectomy - Present Medications Home Medications: Ambulatory Orders Medication Instructions Recorded Confirmed PARoxetine [Paxil] 20 mg DAILY 07/16/14 03/06/15 Acetaminophen [Tylenol Extra 04/02/18 Strength] Baclofen 10 mg TID PRN 04/02/18 Carvedilol 25 mg PO BID 04/02/18 Cinnamon Bark [Cinnamon] 04/02/18 Insulin Degludec [Tresiba 44 unit SUBQ DAILY 04/02/18 Flextouch U-100] Insulin Regular Human [NovoLIN R] 20 unit SUBQ Q6H 04/02/18 Iron,Carbonyl [Iron Chews] 15 mg PO 04/02/18 Loratadine 04/02/18 Metoclopramide [Reglan] 10 mg PO Q6H PRN #30 tablet 04/02/18 Multivitamin [Multivitamins] 04/02/18 [place]-3S/Dha/Epa/Fish Oil/D3 1 each PO 04/02/18 04/02/18 [[place]-3 + D Softgel] Omeprazole 20 mg DAILY 04/02/18 Pramipexole Di-HCl [Mirapex] 1 tab DAILY PM 04/02/18 Sumatriptan Succinate [Imitrex] 100 mg PO PRN 04/02/18 cloNIDine [Catapres] 0.1 mg PO DAILY 04/02/18 dilTIAZem HCl [Diltiazem 24Hr ER] 120 mg DAILY 04/02/18 Furosemide [Lasix] 20 mg PO DAILY #4 tablet 05/13/18 Isosorbide Mononitrate ER [Imdur] 60 mg PO DAILY #30 tablet 05/13/18 Ondansetron Odt [Zofran] 4 mg TL Q6H PRN #10 tablet 05/13/18 hydrALAZINE [Apresoline] 50 mg PO TID 05/13/18 Torsemide 40 mg DAILY 05/15/18 05/15/18 Promethazine Sup [Phenergan Supp] 12.5 mg [place] Q8H #10 supp 09/02/18 Amoxicillin/Potassium Clav 1 each PO DAILY #7 tablet 01/14/19 [Amox-Clav 500-125 mg Tablet] - Allergies Allergies/Adverse Reactions: Allergies Allergy/AdvReac Type Severity Reaction Status Date / Time amlodipine Allergy Edema Verified 01/14/19 12:24 rosuvastatin [From Crestor] Allergy Headache Verified 01/14/19 12:24 Sulfa (Sulfonamide Allergy Rash Verified 01/14/19 12:24 Antibiotics) tetracycline Allergy Rash Verified 01/14/19 12:24 - Social History Does the pt smoke?: No Smoking Status: Former smoker Does the pt drink ETOH?: No Does the pt have substance abuse?: No - Immunizations Immunizations are current?: Yes - POLST Patient has POLST: No PD ED PE NORMAL - Vitals Vital signs reviewed: Yes - General General: Alert and oriented X 3, No acute distress - Cardiac Cardiac: RRR, No murmur - Respiratory Respiratory: No respiratory distress, Clear bilaterally - Abdomen Abdomen: Non tender - Extremities Extremities: No edema, Other (She has several toenails missing and there is a little skin avulsion of the tip of the third toe which is not tender.) - Neuro Neuro: Alert and oriented X 3, Normal speech - Psych Psych: Normal mood, Normal affect Results - Vitals Vitals: Vital Signs - 24 hr 01/14/19 12:19 Temperature 36.9 C Heart Rate 94 Respiratory 18 Rate Blood Pressure 157/70 H O2 Saturation 97 Oxygen O2 Source Room air - Labs Labs: Laboratory Tests 01/14/19 01/14/19 13:13 13:13 WBC 9.1 RBC 2.58 L Hgb 8.6 L Hct 27.6 L MCV 107.0 H MCH 33.3 H MCHC 31.2 L RDW 14.4 Plt Count 385 MPV 9.4 Neut # (Auto) 6.7 H Lymph # (Auto) 1.3 L [place] # (Auto) 0.5 Eos # (Auto) 0.5 Baso # (Auto) 0.1 Absolute Nucleated RBC 0.00 Nucleated RBC % 0.0 Sodium 139 Potassium 5.3 H Chloride 103 Carbon Dioxide 20 L Anion Gap 16.0 H BUN 91 H* Creatinine 5.7 H Estimated GFR (MDRD) 8 L Glucose 120 H Calcium 9.1 Phosphorus 7.3 H Magnesium 2.4 PD MEDICAL DECISION MAKING - ED course ED course: 53-year-old woman with a neck of the left third toe. No current signs of infection but will prophylax given her comorbidities. No active bleeding at this point, it is dressed loosely with Gelfoam and a fracture shoe. We will check some labs given her ancillary complaints of lightheadedness, again noting her comorbidities. The antibiotics are dose based on online recommendations for dialysis. She also requested an ultrasound of her fistula stating that her manpower development specialist wants it done. I discussed with her that I was happy to order it but it was unrelated to today's complaint and after discussion she declined to have it done in the emergency department. Regarding the labs I did speak with Dr. Greenfield on-call for his manpower development specialist. He just simply recommended that she go to dialysis today which she has not gone to yet. Departure - Departure Disposition: 01 Home, Self Care Clinical Impression: Dizzy, Skin avulsion, Hyperphosphatemia CKD (chronic kidney disease) Qualifiers: Chronic kidney disease stage: on chronic dialysis Qualified Code(s): N18.6 - End stage renal disease Condition: Good Record reviewed to determine appropriate education?: Yes Instructions: ED Near Syncope Unkn, ED Wound Care Prescriptions: Amoxicillin/Potassium Clav [Amox-Clav 500-125 mg Tablet] 1 each PO DAILY #7 tablet Comments: Return for signs of infection including but not limited to redness, swelling, drainage, increased pain, fevers. Go to dialysis today as per normal routine. Return for new or worsening symptoms.
[2019-01-14 13:18] LABS: BASOPHILS # (AUTO) 0.1 10^3/uL (0.0-0.1); BASOPHILS % (AUTO) 0.7 %; EOSINOPHILS # (AUTO) 0.5 10^3/uL (0.0-0.7); EOSINOPHILS % (AUTO) 5.7 %; HGB - HEMOGLOBIN 8.6 g/dL (12.0-16.0); LYMPHOCYTES # (AUTO) 1.3 10^3/uL (1.5-3.5); LYMPHOCYTES % (AUTO) 13.9 %; MEAN CORPUSCULAR HEMOGLOBIN 33.3 pg (27.0-31.0); MEAN CORPUSCULAR HGB CONC 31.2 g/dL (32.0-36.0); MEAN PLATELET VOLUME 9.4 fL (7.9-10.8); MONOCYTES # (AUTO) 0.5 10^3/uL (0.0-1.0); MONOCYTES % (AUTO) 4.9 %; NEUTROPHILS # (AUTO) 6.7 10^3/uL (1.5-6.6); NEUTROPHILS % (AUTO) 73.4 %; PLT - PLATELET COUNT 385 10^3/uL (130-450); RED BLOOD COUNT 2.58 10^6/uL (4.20-5.40); RED CELL DISTRIBUTION WIDTH 14.4 % (12.0-15.0); WHITE BLOOD COUNT 9.1 x10^3/uL (4.8-10.8)
[2019-01-14 13:58] LABS: CALCIUM 9.1 mg/dL (8.5-10.3); CREATININE 5.7 mg/dL (0.4-1.0); MAGNESIUM 2.4 mg/dL (1.7-2.8); PHOSPHORUS 7.3 mg/dL (2.5-4.6)
[2019-01-14 14:50] VITALS: BP 151/82
== END 2019-01-14 14:49 | disposition home or self-care (01) ==
LOC: ED 12:09
DX: S91.115A Laceration without foreign body of left lesser toe(s) without damage to nail, initial encounter (principal); E83.39 Other disorders of phosphorus metabolism; R42 Dizziness and giddiness; I12.9 Hypertensive chronic kidney disease with stage 1 through stage 4 chronic kidney disease, or unspecified chronic kidney disease; N18.6 End stage renal disease; E11.29 Type 2 diabetes mellitus with other diabetic kidney complication; Z99.2 Dependence on renal dialysis; Z87.891 Personal history of nicotine dependence; Z79.4 Long term (current) use of insulin
CPT/HCPCS: 36415; 80048; 83735; 84100; 85025; 90471; 90715; 99283; 99284; A9270

== ENCOUNTER 2019-03-11 15:04 | Emergency (ER) | payer MEDICARE, OTHER ==
--- NOTE | 2019-03-11 15:52 | ED Physician Documentation ---
PD HPI OVERDOSE - Stated complaint Stated Complaint: OD - Chief complaint Chief Complaint: General - History obtained from History obtained from: Patient - History of Present Illness Timing - onset: How many hours ago (past couple of hours. She had taken her pain med that she uses occasionally. Was still hurting so took 2nd one, and became overly somnolent. Family brought her to dialysis but she was concerningly sleepy, so referred to ER for evaluation. Family says she has not been ill. Had done previous dialysis without problems. Normal acrtivity the past few days. Patient says she fell and struck head last week but not had headache.), Today Subtance(s) ingested: Single, Narcotic (took 2 pain pills rather than 1, and historically it caused some sedation, but today seemed worse that prior.) Associated symptoms: Altered mental status (sleepy), Abdominal pain. No: Agitated, Combative Contributing factors: No: Depresssed, Suicidal Similar symptoms before: No diagnosis (sleepy at times from meds.) Recently seen: Not recently seen Review of Systems Constitutional: denies: Fever, Chills Nose: denies: Rhinorrhea / runny nose, Congestion Throat: denies: Sore throat Cardiac: denies: Chest pain / pressure Respiratory: denies: Dyspnea, Cough GI: reports: Nausea. 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 HEENT: Tonsil/Adenoidectomy - Present Medications Home Medications: Ambulatory Orders Medication Instructions Recorded Confirmed PARoxetine [Paxil] 20 mg DAILY 07/16/14 03/06/15 Acetaminophen [Tylenol Extra 04/02/18 Strength] Baclofen 10 mg TID PRN 04/02/18 Carvedilol 25 mg PO BID 04/02/18 Cinnamon Bark [Cinnamon] 04/02/18 Insulin Degludec [Tresiba 44 unit SUBQ DAILY 04/02/18 Flextouch U-100] Insulin Regular Human [NovoLIN R] 20 unit SUBQ Q6H 04/02/18 Iron,Carbonyl [Iron Chews] 15 mg PO 04/02/18 Loratadine 04/02/18 Metoclopramide [Reglan] 10 mg PO Q6H PRN #30 tablet 04/02/18 Multivitamin [Multivitamins] 04/02/18 [place]-3S/Dha/Epa/Fish Oil/D3 1 each PO 04/02/18 04/02/18 [[place]-3 + D Softgel] Omeprazole 20 mg DAILY 04/02/18 Pramipexole Di-HCl [Mirapex] 1 tab DAILY PM 04/02/18 Sumatriptan Succinate [Imitrex] 100 mg PO PRN 04/02/18 cloNIDine [Catapres] 0.1 mg PO DAILY 04/02/18 dilTIAZem HCl [Diltiazem 24Hr ER] 120 mg DAILY 04/02/18 Furosemide [Lasix] 20 mg PO DAILY #4 tablet 05/13/18 Isosorbide Mononitrate ER [Imdur] 60 mg PO DAILY #30 tablet 05/13/18 Ondansetron Odt [Zofran] 4 mg TL Q6H PRN #10 tablet 05/13/18 hydrALAZINE [Apresoline] 50 mg PO TID 05/13/18 Torsemide 40 mg DAILY 05/15/18 05/15/18 Promethazine Sup [Phenergan Supp] 12.5 mg [place] Q8H #10 supp 09/02/18 Amoxicillin/Potassium Clav 1 each PO DAILY #7 tablet 01/14/19 [Amox-Clav 500-125 mg Tablet] - Allergies Allergies/Adverse Reactions: Allergies Allergy/AdvReac Type Severity Reaction Status Date / Time amlodipine Allergy Edema Verified 03/11/19 15:19 rosuvastatin [From Crestor] Allergy Headache Verified 03/11/19 15:19 Sulfa (Sulfonamide Allergy Rash Verified 03/11/19 15:19 Antibiotics) tetracycline Allergy Rash Verified 03/11/19 15:19 - Social History Does the pt smoke?: No Smoking Status: Never smoker Does the pt drink ETOH?: No Does the pt have substance abuse?: No - Immunizations Immunizations are current?: Yes - POLST Patient has POLST: No PD ED PE NORMAL - Vitals Vital signs reviewed: Yes - General General: Alert and oriented X 3, No acute distress, Well developed/nourished - HEENT HEENT: Atraumatic, Moist mucous membranes, Pharynx benign - Neck Neck: Supple, no meningeal sign, No adenopathy, No bruit - Cardiac Cardiac: RRR - Respiratory Respiratory: Clear bilaterally - Abdomen Abdomen: Soft, Non tender - Derm Derm: Normal color, Warm and dry - Extremities Extremities: No tenderness to palpate, Normal ROM s pain, No edema, No calf tenderness / cord - Neuro Neuro: Alert and oriented X 3, No motor deficit, Normal speech Results - Vitals Vitals: Vital Signs - 24 hr 03/11/19 03/11/19 03/11/19 15:19 16:03 17:28 Temperature 36.9 C Heart Rate 83 82 83 Respiratory 14 15 15 Rate Blood Pressure 168/80 H 132/71 H 156/115 H O2 Saturation 95 99 96 03/11/19 17:30 Temperature Heart Rate 84 Respiratory 20 Rate Blood Pressure 156/115 H O2 Saturation 93 Oxygen O2 Source Room air - Labs Labs: Laboratory Tests 03/11/19 03/11/19 03/11/19 16:27 16:48 16:48 WBC 12.2 H RBC 3.09 L Hgb 10.2 L Hct 32.0 L MCV 103.6 H MCH 33.0 H MCHC 31.9 L RDW 15.3 H Plt Count 408 MPV 9.2 Neut # (Auto) 10.0 H Lymph # (Auto) 1.0 L Elbert # (Auto) 0.6 Eos # (Auto) 0.4 Baso # (Auto) 0.1 Absolute Nucleated RBC 0.02 Nucleated RBC % 0.2 PT INR APTT Sodium 139 Potassium 4.8 Chloride 104 Carbon Dioxide 19 L Anion Gap 16.0 H BUN 98 H* Creatinine 6.5 H Estimated GFR (MDRD) 7 L Glucose 157 H POC Whole Bld Glucose 153 H Calcium 8.9 Magnesium 2.6 Total Bilirubin 0.4 AST 28 ALT < 10 L Alkaline Phosphatase 107 Ammonia Total Protein 7.7 Albumin 3.9 Globulin 3.8 Albumin/Globulin Ratio 1.0 Lipase 77 H TSH Urine Color Urine Clarity Urine pH Ur Specific [place] Urine Protein Urine Glucose (UA) Urine Ketones Urine Occult Blood Urine Nitrite Urine Bilirubin Urine Urobilinogen Ur Leukocyte Esterase Urine RBC Urine WBC Urine WBC Clumps Ur Squamous Epith Cells Urine Bacteria Ur Microscopic Review Urine Culture Comments 03/11/19 03/11/19 03/11/19 16:48 16:48 16:48 WBC RBC Hgb Hct MCV MCH MCHC RDW Plt Count MPV Neut # (Auto) Lymph # (Auto) Elbert # (Auto) Eos # (Auto) Baso # (Auto) Absolute Nucleated RBC Nucleated RBC % PT 12.0 INR 1.1 APTT 34.9 H Sodium Potassium Chloride Carbon Dioxide Anion Gap BUN Creatinine Estimated GFR (MDRD) Glucose POC Whole Bld Glucose Calcium Magnesium Total Bilirubin AST ALT Alkaline Phosphatase Ammonia 24.4 Total Protein Albumin Globulin Albumin/Globulin Ratio Lipase TSH 2.04 Urine Color Urine Clarity Urine pH Ur Specific [place] Urine Protein Urine Glucose (UA) Urine Ketones Urine Occult Blood Urine Nitrite Urine Bilirubin Urine Urobilinogen Ur Leukocyte Esterase Urine RBC Urine WBC Urine WBC Clumps Ur Squamous Epith Cells Urine Bacteria Ur Microscopic Review Urine Culture Comments 03/11/19 17:18 WBC RBC Hgb Hct MCV MCH MCHC RDW Plt Count MPV Neut # (Auto) Lymph # (Auto) Elbert # (Auto) Eos # (Auto) Baso # (Auto) Absolute Nucleated RBC Nucleated RBC % PT INR APTT Sodium Potassium Chloride Carbon Dioxide Anion Gap BUN Creatinine Estimated GFR (MDRD) Glucose POC Whole Bld Glucose Calcium Magnesium Total Bilirubin AST ALT Alkaline Phosphatase Ammonia Total Protein Albumin Globulin Albumin/Globulin Ratio Lipase TSH Urine Color YELLOW Urine Clarity CLEAR Urine pH 5.5 Ur Specific [place] 1.025 Urine Protein 100 H Urine Glucose (UA) NEGATIVE Urine Ketones NEGATIVE Urine Occult Blood SMALL H Urine Nitrite NEGATIVE Urine Bilirubin NEGATIVE Urine Urobilinogen 0.2 (NORMAL) Ur Leukocyte Esterase NEGATIVE Urine RBC 0-5 Urine WBC 4-5 Urine WBC Clumps PRESENT Ur Squamous Epith Cells MANY Squamous H Urine Bacteria Many H Ur Microscopic Review INDICATED Urine Culture Comments NOT INDICATED PD MEDICAL DECISION MAKING - ED course Complexity details: reviewed results, re-evaluated patient (improved alertness with Narcan and stayed away for lab test results. We check with dialysis center and they can accomodate her if she arrived before 6:20 pm. ), considered differential, d/w patient Departure - Departure Disposition: 01 Home, Self Care Clinical Impression: Accidental overdose Qualifiers: Encounter type: initial encounter Qualified Code(s): T50.901A - Poisoning by unspecified drugs, medicaments and biological substances, accidental (unintentional), initial encounter Altered mental status Qualifiers: Altered mental status type: somnolence Qualified Code(s): R40.0 - Somnolence Condition: Stable Record reviewed to determine appropriate education?: Yes Instructions: ED Overdose Accidental Follow-Up: Monae Nunez DO [Primary Care Provider] - Comments: Continue usual medications. You should be able to still make it to dialysis if you go directly there. Stay well-hydrated otherwise. Only one pain medicine at a time. Discharge Date/Time: 03/11/19 17:52
[2019-03-11] MEDS ORDERED: NALOXONE 0.4 MG/ML VIAL IVP STA (16:16)
[2019-03-11] MEDS ORDERED: ONDANSETRON 4 MG/2 ML VIAL IVP STA (16:45)
[2019-03-11 16:52] LABS: BASOPHILS # (AUTO) 0.1 10^3/uL (0.0-0.1); BASOPHILS % (AUTO) 0.6 %; EOSINOPHILS # (AUTO) 0.4 10^3/uL (0.0-0.7); EOSINOPHILS % (AUTO) 3.2 %; HGB - HEMOGLOBIN 10.2 g/dL (12.0-16.0); LYMPHOCYTES % (AUTO) 8.4 %; MEAN CORPUSCULAR HGB CONC 31.9 g/dL (32.0-36.0); MEAN CORPUSCULAR VOLUME 103.6 fL (81.0-99.0); MEAN PLATELET VOLUME 9.2 fL (7.9-10.8); MONOCYTES # (AUTO) 0.6 10^3/uL (0.0-1.0); NEUTROPHILS % (AUTO) 81.7 %; PLT - PLATELET COUNT 408 10^3/uL (130-450); RED BLOOD COUNT 3.09 10^6/uL (4.20-5.40); RED CELL DISTRIBUTION WIDTH 15.3 % (12.0-15.0); WHITE BLOOD COUNT 12.2 x10^3/uL (4.8-10.8)
[2019-03-11 16:58] LABS: INR 1.1 (0.8-1.2)
[2019-03-11 17:05] LABS: PARTIAL THROMBOPLASTIN TIME 34.9 secs (24.9-33.3)
--- NOTE | 2019-03-11 17:08 | CT Report ---
Reason: altered mental status Procedure Date: 03/11/2019 Accession Number: [id number] / [id number] Procedure: CT - HEAD WO CPT Code: FULL RESULT: EXAM: CT HEAD EXAM DATE: 03/11/2019 04:40 PM. CLINICAL HISTORY: Altered mental status. COMPARISON: None. TECHNIQUE: Multiaxial CT images were obtained from the foramen magnum to the vertex. Reformats: Sagittal and coronal. IV contrast: None. In accordance with CT protocol optimization, one or more of the following dose reduction techniques were utilized for this exam: automated exposure control, adjustment of mA and/or KV based on patient size, or use of iterative reconstructive technique. FINDINGS: Parenchyma: No intraparenchymal hemorrhage. No evidence of mass, midline shift, or CT findings of infarction. Cohen-white differentiation is distinct. Extraaxial Spaces: Normal for age. No subdural or epidural collections identified. Ventricles: Normal in size and position. Sinuses and Orbits: Imaged paranasal sinuses, orbits, and mastoids show no significant abnormality. Bones: No evidence of fracture or calvarial defect. Other: None. IMPRESSION: Negative for an acute or focal intracranial abnormality. RADIA
[2019-03-11 17:17] LABS: ALBUMIN 3.9 g/dL (3.2-5.5); ALKALINE PHOSPHATASE 107 IU/L (42-121); ALT ALANINE AMINOTRANSFERASE < 10 IU/L (10-60); AST ASPARTATE AMINOTRANSFERASE 28 IU/L (10-42); BILIRUBIN,TOTAL 0.4 mg/dL (0.2-1.0); BUN - BLOOD UREA NITROGEN 98 mg/dL (6-20); CALCIUM 8.9 mg/dL (8.5-10.3); CARBON DIOXIDE - CO2 19 mmol/L (21-32); CHLORIDE 104 mmol/L (101-111); CREATININE 6.5 mg/dL (0.4-1.0); GFR - MDRD 7 (>89); GLUCOSE 157 mg/dL (70-100); LIPASE 77 U/L (22-51); MAGNESIUM 2.6 mg/dL (1.7-2.8); SODIUM 139 mmol/L (135-145); TOTAL PROTEIN 7.7 g/dL (6.7-8.2)
[2019-03-11 17:29] VITALS: BP 156/115
[2019-03-11 17:34] LABS: BILIRUBIN,URINE NEGATIVE (NEGATIVE); GLUCOSE, URINE (UA) NEGATIVE (NEGATIVE); KETONES,URINE (UA) NEGATIVE (NEGATIVE); LEUKOCYTE ESTERASE, URINE NEGATIVE (NEGATIVE); NITRITE,URINE NEGATIVE (NEGATIVE); OCCULT BLOOD,URINE SMALL (NEGATIVE); PH,URINE 5.5 PH (5.0-7.5); PROTEIN,URINE 100 mg/dL (NEGATIVE); UROBILINOGEN,URINE 0.2 (NORMAL) E.U./dL (NORMAL)
[2019-03-11 17:40] LABS: CLARITY,URINE CLEAR (CLEAR)
[2019-03-11 17:41] LABS: RBC,URINE 0-5 /HPF (0-5); WBC CLUMPS,URINE PRESENT
[2019-03-11 17:42] LABS: BACTERIA,URINE Many /HPF (None Seen); SQUAMOUS EPITHELIAL CELL,UR MANY Squamous (<= Few)
== END 2019-03-11 17:52 | disposition home or self-care (01) ==
LOC: ED 15:04
DX: T50.901A Poisoning by unspecified drugs, medicaments and biological substances, accidental (unintentional), initial encounter (principal); R40.0 Somnolence; R11.0 Nausea; I10 Essential (primary) hypertension; E11.9 Type 2 diabetes mellitus without complications; Z79.4 Long term (current) use of insulin; Z99.2 Dependence on renal dialysis
CPT/HCPCS: 36415; 70450; 80053; 81001; 81003; 82140; 83690; 83735; 84443; 85025; 85610; 85730; 87086; 96374; 96375; 99283

== ENCOUNTER 2019-05-31 12:19 | Outpatient (CLI) | payer OTHER, MEDICARE | END 2019-05-31 12:20 | disposition short-term general hospital (02) | LOC: EMS 12:19 | PROVIDERS: ATTEND Surgery | DX: S00.83XA Contusion of other part of head, initial encounter (principal); R40.0 Somnolence; R11.2 Nausea with vomiting, unspecified; R51 Headache; M54.6 Pain in thoracic spine; W06.XXXA Fall from bed, initial encounter; Y92.003 Bedroom of unspecified non-institutional (private) residence as the place of occurrence of the external cause; Z99.2 Dependence on renal dialysis | CPT/HCPCS: A0425; A0427 ==

== ENCOUNTER 2020-02-04 13:30 | Outpatient (CLI) | payer OTHER, MEDICARE ==
--- NOTE | 2020-02-04 15:07 | XRAY Report ---
PROCEDURE: Hip 1 View RT INDICATIONS: RIGHT HIP PAIN TECHNIQUE: 2 views of the hip were acquired. COMPARISON: None FINDINGS: Bones: No fractures or dislocations. No suspicious bony lesions. The visualized pelvic ring appear s intact. Mild bilateral hip joint space narrowing and periarticular osteophyte formation. Soft tissues: No suspicious soft tissue calcifications or masses. IMPRESSION: Bilateral hip osteoarthritis. No acute fracture. No osseous lesion. If symptoms and/or clinical suspi cion for pathology continue, further assessment with repeat plain films, or advanced imaging (e.g., C T, MRI, or bone scan) is recommended for further assessment. Reviewed by: Mario Troy MD on 02/04/2020 3:06 PM PDT Approved by: Mario Troy MD on 02/04/2020 3:06 PM PDT Station ID: [id number]
== END 2020-02-04 13:31 | disposition home or self-care (01) ==
LOC: DI.WCP 13:30
PROVIDERS: ATTEND Family Medicine
DX: M16.0 Bilateral primary osteoarthritis of hip (principal); R78.81 Bacteremia

== ENCOUNTER 2020-07-08 08:00 | Outpatient (CLI) | payer OTHER, MEDICARE ==
[2020-07-09 18:51] LABS: BILIRUBIN,URINE NEGATIVE (NEGATIVE); GLUCOSE, URINE (UA) 100 mg/dL (NEGATIVE); KETONES,URINE (UA) NEGATIVE (NEGATIVE); LEUKOCYTE ESTERASE, URINE SMALL (NEGATIVE); NITRITE,URINE NEGATIVE (NEGATIVE); OCCULT BLOOD,URINE NEGATIVE (NEGATIVE); PH,URINE 5.5 PH (5.0-7.5); PROTEIN,URINE 100 mg/dL (NEGATIVE); UROBILINOGEN,URINE 0.2 (NORMAL) E.U./dL (NORMAL)
[2020-07-09 18:56] LABS: BACTERIA,URINE Few /HPF (None Seen); CLARITY,URINE HAZY (CLEAR); RBC,URINE 0-5 /HPF (0-5)
[2020-07-09 19:01] LABS: SQUAMOUS EPITHELIAL CELL,UR MANY Squamous (<= Few); YEAST,URINE PRESENT
== END 2020-07-08 23:59 | disposition home or self-care (01) ==
LOC: LAB.R 08:00
PROVIDERS: ATTEND Family Medicine
DX: N39.0 Urinary tract infection, site not specified (principal)
CPT/HCPCS: 81001; 87086

== ENCOUNTER 2020-11-04 08:16 | Outpatient (CLI) | payer OTHER, MEDICARE ==
--- NOTE | 2020-11-04 11:36 | XRAY Report ---
PROCEDURE: Chest 2 View X-Ray INDICATIONS: ESRD TECHNIQUE: 2 view(s) of the chest. COMPARISON: 05/13/2018.. FINDINGS: Surgical changes and devices: Right chest wall tunneled dialysis catheter with tip projecting over th e distal SVC. Lungs and pleura: No pleural effusions or pneumothorax. Lungs are clear. Mild central vascular marilee estion. Mediastinum: Mediastinal contours are normal. Heart is at the upper limits of normal in size. Bones and chest wall: No suspicious bony abnormalities. Soft tissues appear unremarkable. IMPRESSION: Mild central vascular congestion which may be due to fluid overload or CHF. Reviewed by: Joann Solano MD, PhD on 11/04/2020 11:35 AM PDT Approved by: Joann Solano MD, PhD on 11/04/2020 11:35 AM PDT Station ID: [id number]
== END 2020-11-04 08:17 | disposition home or self-care (01) ==
LOC: DI.N 08:16
PROVIDERS: ATTEND Family Medicine
DX: R09.89 Other specified symptoms and signs involving the circulatory and respiratory systems (principal)

== ENCOUNTER 2020-11-04 08:22 | Outpatient (CLI) | payer OTHER, MEDICARE | END 2020-11-04 08:23 | disposition home or self-care (01) | LOC: LAB.N 08:22 | PROVIDERS: ATTEND Family Medicine | DX: N18.6 End stage renal disease (principal); Z20.822 Contact with and (suspected) exposure to COVID-19 ==

== ENCOUNTER 2020-11-30 22:26 | Emergency (ER) | payer OTHER, MEDICARE ==
--- OUTSIDE RECORDS SUMMARY | 2020-11-30 22:30 | EXTERNAL MEDICAL SUMMARY RPT | Continuity of Care Document ---
:1965 Demographics Phone Unavailable Preferred Language Stateless Marital Status Unknown Jew Affiliation Unknown Race Unknown Ethnic Group Unknown Author Organization [place] Address [address] [phone] Phone Care Team Providers Name Role Phone Scheidt Unavailable Unavailable Allergies Encounters Medications Problems date description facility 20201119 Diarrhea, unspecified [facility] 20201112 Unspecified abdominal pain [facility] 20201112 Type 2 diabetes mellitus without [facility] complications [id number] Osteomyelitis, unspecified [facility] 20201112 End stage renal disease [facility] 20201112 Cellulitis [facility] 20201112 Cellulitis of left lower limb [facility] 20201029 Contact with and (suspected) exposure [facility] to COVID-19 [id number] Type 2 diabetes mellitus with foot [facility] [id number] 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 [id number] Local infection of the skin and [facility] subcutaneous tissue, unspeci [id number] Type 2 diabetes mellitus with foot [facility] ulcer 29874654 Subacute osteomyelitis, left ankle and [facility] foot [id number] penitentiary (current) use of antibiotics [facility] [id number] Dependence on renal dialysis [facility] spital [id number] Type 2 diabetes mellitus with foot [facility] ulcer 21863032 Type 2 diabetes mellitus with foot [facility] ulcer Procedures date description facility 20200915 [facility] 20200907 [facility] Results Vital Signs date measurement value source 20200915 weight_standard 110.68 lb 20200915 weight_metric 50.2 kg 20200915 temperature_standard 97.7 F 20200915 temperature_metric 36.5 C 20200915 respiration_rate 18 /min 20200915 height_standard 63 in 20200915 height_metric 160.02 cm 20200915 heart_rate 82 /min 20200915 BP_systolic 146 mm[Hg] 20200915 BP_diastolic 84 mm[Hg] 20200915 BMI 43.2 kg/m2
--- OUTSIDE RECORDS SUMMARY | 2020-11-30 22:58 | EXTERNAL MEDICAL SUMMARY RPT | Continuity of Care Document ---
:1965 Demographics Phone Unavailable Preferred Language Monegasque Marital Status Unknown Advent Affiliation Unknown Race Unknown Ethnic Group Unknown Author Organization [place] Address [address] [phone] Phone Care Team Providers Name Role Phone Scheidt Unavailable Unavailable Allergies Encounters Medications Problems date description facility 20201119 Diarrhea, unspecified [facility] 20201112 Unspecified abdominal pain [facility] 20201112 Type 2 diabetes mellitus without [facility] complications [id number] Osteomyelitis, unspecified [facility] 20201112 End stage renal disease [facility] 20201112 Cellulitis [facility] 20201112 Cellulitis of left lower limb [facility] 20201029 Contact with and (suspected) exposure [facility] to COVID-19 [id number] Type 2 diabetes mellitus with foot [facility] ulcer 18648752 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 spital [id number] Type 2 diabetes mellitus with foot [facility] ulcer 00546794 Type 2 diabetes mellitus with foot [facility] ulcer Procedures date description facility 20200915 [facility] 20200907 [facility] Results Vital Signs date measurement value source 20200915 weight_standard 110.68 lb 20200915 weight_metric 50.2 kg 20200915 temperature_standard 97.7 F 20200915 temperature_metric 36.5 C 20200915 respiration_rate 18 /min 20200915 height_standard 63 in 20200915 height_metric 160.02 cm 20200915 heart_rate 82 /min 20200915 BP_systolic 146 mm[Hg] 20200915 BP_diastolic 84 mm[Hg] 20200915 BMI 43.2 kg/m2
--- NOTE | 2020-12-01 00:26 | ED Physician Documentation ---
PD HPI HEADACHE - Stated complaint Stated Complaint: VEGA,NAUSEA,MED REFILL - Chief complaint Chief Complaint: Neuro - History obtained from History obtained from: Patient, Family - History of Present Illness Timing - onset: Enter time (1999), Today Timing - onset during: Rest Timing - duration: Hours Timing - details: Gradual onset, Still present Worst headache ever?: No: Worst headache ever? Location: Front Quality: Aching Associated symptoms: Nausea. No: Fever, Stiff neck, Vomiting, Weakness, Numbness, Syncope, Seizure, Eye pain, Vision changes Improved by: Rest, Dark room, Quiet Worsened by: Light, Noise Contributing factors: No: Anticoagulated Similar symptoms before: Diagnosis (migraine) Recently seen: Other (had) - Additional information Additional information: 55-year-old patient on dialysis is developed a headache. She has a history of migraine headaches and she has had have migraine rescue previously in the emergency department. She states that her headaches are infrequent and she last had one 2 years ago. She denies any aura associated with this and states that she has had relief with sumatriptan and previously and has been told not to take this medication further. Review of Systems Constitutional: denies: Fever Eyes: denies: Decreased vision Ears: denies: Ear pain Nose: denies: Congestion Throat: denies: Sore throat Respiratory: denies: Cough GI: reports: Nausea. 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 HEENT: Tonsil/Adenoidectomy - Present Medications Home Medications: Ambulatory Orders Medication Instructions Recorded Confirmed PARoxetine [Paxil] 20 mg DAILY 07/16/14 03/06/15 Acetaminophen [Tylenol Extra 04/02/18 Strength] Baclofen 10 mg TID PRN 04/02/18 Carvedilol 25 mg PO BID 04/02/18 Cinnamon Bark [Cinnamon] 04/02/18 Insulin Degludec [Tresiba 44 unit SUBQ DAILY 04/02/18 Flextouch U-100] Insulin Regular Human [NovoLIN R] 20 unit SUBQ Q6H 04/02/18 Iron,Carbonyl [Iron Chews] 15 mg PO 04/02/18 Loratadine 04/02/18 Metoclopramide [Reglan] 10 mg PO Q6H PRN #30 tablet 04/02/18 Multivitamin [Multivitamins] 04/02/18 [place]-3S/Dha/Epa/Fish Oil/D3 1 each PO 04/02/18 04/02/18 [[place]-3 + D Softgel] Omeprazole 20 mg DAILY 04/02/18 Pramipexole Di-HCl [Mirapex] 1 tab DAILY PM 04/02/18 Sumatriptan Succinate [Imitrex] 100 mg PO PRN 04/02/18 cloNIDine [Catapres] 0.1 mg PO DAILY 04/02/18 dilTIAZem HCl [Diltiazem 24Hr ER] 120 mg DAILY 04/02/18 Furosemide [Lasix] 20 mg PO DAILY #4 tablet 05/13/18 Isosorbide Mononitrate ER [Imdur] 60 mg PO DAILY #30 tablet 05/13/18 Ondansetron Odt [Zofran] 4 mg TL Q6H PRN #10 tablet 05/13/18 hydrALAZINE [Apresoline] 50 mg PO TID 05/13/18 Torsemide 40 mg DAILY 05/15/18 05/15/18 Promethazine Sup [Phenergan Supp] 12.5 mg [place] Q8H #10 supp 09/02/18 Amoxicillin/Potassium Clav 1 each PO DAILY #7 tablet 01/14/19 [Amox-Clav 500-125 mg Tablet] - Allergies Allergies/Adverse Reactions: Allergies Allergy/AdvReac Type Severity Reaction Status Date / Time amlodipine Allergy Edema Verified 03/11/19 15:19 rosuvastatin [From Crestor] Allergy Headache Verified 03/11/19 15:19 Sulfa (Sulfonamide Allergy Rash Verified 03/11/19 15:19 Antibiotics) tetracycline Allergy Rash Verified 03/11/19 15:19 trazodone Allergy Unknown Verified 11/30/20 22:48 - Social History Does the pt smoke?: No Smoking Status: Never smoker Does the pt drink ETOH?: No Does the pt have substance abuse?: No - Immunizations Immunizations are current?: Yes - POLST Patient has POLST: No PD ED PE NORMAL - Vitals Vital signs reviewed: Yes (Hypertensive) - General General: Alert and oriented X 3, No acute distress, Well developed/nourished - HEENT HEENT: Atraumatic, PERRL, EOMI - Neck Neck: Supple, no meningeal sign, No bony TTP - Cardiac Cardiac: RRR, No murmur - Respiratory Respiratory: No respiratory distress, Clear bilaterally - Abdomen Abdomen: Normal bowel sounds, Soft, Non distended - Back Back: No CVA TTP, No spinal TTP - Derm Derm: Normal color, Warm and dry, No rash - Extremities Extremities: No deformity, No edema - Neuro Neuro: Alert and oriented X 3, strapper 2-12 intact, No motor deficit, No sensory deficit, Normal speech Eye Opening: Spontaneous Motor: Obeys Commands Verbal: Oriented GCS Score: 15 - Psych Psych: Normal mood, Normal affect Results - Vitals Vitals: Vital Signs - 24 hr 11/30/20 12/01/20 22:40 00:45 Temperature 36.4 C L 36.5 C Heart Rate 100 97 Respiratory 16 16 Rate Blood Pressure 149/75 H 148/75 H O2 Saturation 100 99 Oxygen O2 Source Room air PD MEDICAL DECISION MAKING - ED course Complexity details: reviewed results, re-evaluated patient, considered differential, d/w patient ED course: 55-year-old diabetic female on dialysis has a migraine headache. She does have use of insulin and monitor and she is administered IM medications for treatment of migraine. She is given a cocktail of Toradol, Compazine, Benadryl and dexamethasone. She has resolution of her headache. She does have insulin to use for increased sugar with the dexamethasone.We did not provide intravenous fluid today as the patient was 2 kg over her usual dry weight. She was dialyzed today. Her medications were given IM. Departure - Departure Disposition: 01 Home, Self Care Clinical Impression: Migraine Qualifiers: Migraine type: without aura Status migrainosus presence: without status migrainosus Intractability: not intractable Qualified Code(s): G43.009 - Migraine without aura, not intractable, without status migrainosus Condition: Stable Instructions: ED Headache Migraine Follow-Up: Monae Nunez DO [Primary Care Provider] - Discharge Date/Time: 12/01/20 00:57
[2020-12-01] MEDS ORDERED: diphenhydrAMINE INJ 50 MG/ML VIAL IM STA (00:27)
[2020-12-01] MEDS ORDERED: PROCHLORPERAZINE 10 MG/2 ML VIAL IM STA (00:27)
[2020-12-01] MEDS ORDERED: CHERRY SYRUP 10 ML UDC PO ONE (00:28)
[2020-12-01] MEDS ORDERED: KETOROLAC 30 MG/ML VIAL IM STA (00:28)
[2020-12-01] MEDS ORDERED: DEXAMETHASONE 10 MG/ML VIAL PO STA (00:28)
[2020-12-01 00:45] VITALS: BP 148/75
== END 2020-12-01 00:57 | disposition home or self-care (01) ==
LOC: ED 22:26
DX: G43.009 Migraine without aura, not intractable, without status migrainosus (principal); E11.22 Type 2 diabetes mellitus with diabetic chronic kidney disease; I12.0 Hypertensive chronic kidney disease with stage 5 chronic kidney disease or end stage renal disease; N18.6 End stage renal disease; Z99.2 Dependence on renal dialysis; Z79.4 Long term (current) use of insulin
CPT/HCPCS: 96372; 99283; 99284; A9270; J1200

== ENCOUNTER 2020-12-19 14:00 | Outpatient (CLI) | payer OTHER, MEDICARE ==
--- NOTE | 2020-12-19 14:52 | XRAY Report ---
PROCEDURE: Wrist 3 View RT INDICATIONS: RIGHT WRIST PX TECHNIQUE: 3 views of the wrist were acquired. COMPARISON: None FINDINGS: Bones: No fractures or dislocations. No suspicious bony lesions. Soft tissues: No suspicious soft tissue calcifications. Small vessel calcifications usually indicat es the presence of long-standing diabetes. IMPRESSION: No evidence acute bony abnormality of the right wrist. If clinical suspicion and/or symptoms persist, further assessment with repeat plain films or advanced imaging (e.g., CT, MRI, or bone scan) may be helpful for further assessment. Reviewed by: Adrian Veliz MD on 12/19/2020 1:50 PM BORIS Approved by: Adrian Veliz MD on 12/19/2020 1:50 PM [id number] Station ID: [id number]
== END 2020-12-19 14:01 | disposition home or self-care (01) ==
LOC: DI.N 14:00
PROVIDERS: ATTEND Nurse Practitioner
DX: M25.531 Pain in right wrist (principal)

== ENCOUNTER 2021-01-14 21:04 | Emergency (ER) | payer OTHER, MEDICARE ==
[2021-01-14] MEDS ORDERED: CYCLOBENZAPRINE 10 MG TABLET PO STA (21:31)
[2021-01-14] MEDS ORDERED: KETOROLAC 15 MG/ML VIAL IM STA (21:31)
[2021-01-14] MEDS ORDERED: CYCLOBENZAPRINE 10 MG Prepack 2 PO PRN (21:31)
--- NOTE | 2021-01-14 21:36 | ED Physician Documentation ---
History of Present Illness - Stated complaint Stated Complaint: GLF, R SOULDER PX, L HIP PX - Chief complaint Chief Complaint: Trauma Ch/Bk - History obtained from History obtained from: Patient - Additonal information Additional information: 85-year-old woman presents status post mechanical fall while getting out of the car falling backwards onto her back, hitting Left lower back and right shoulder around 4pm today. sudden onset aching constant moderate severity pain 5/10, not resolved with hydrocodone. pain is worse with walking and with rom of the shoulder. denies HT, LOC, midline back pain, weakness or numbness. patient ambulatory with a cane today (normally independent) Review of Systems Constitutional: denies: Fever, Chills Respiratory: denies: Dyspnea GI: denies: Abdominal Pain Musculoskeletal: reports: Back pain, Extremity pain, Joint pain PD PAST MEDICAL HISTORY - Past Medical History Past Medical History: Yes Cardiovascular: Hypertension Neuro: Migraines Endocrine/Autoimmune: Type 2 diabetes : Renal insuffiency - Past Surgical History Past Surgical History: Yes /[employer]: section HEENT: Tonsil/Adenoidectomy - Present Medications Home Medications: Ambulatory Orders Medication Instructions Recorded Confirmed PARoxetine [Paxil] 20 mg DAILY 07/16/14 03/06/15 Acetaminophen [Tylenol Extra 04/02/18 Strength] Baclofen 10 mg TID PRN 04/02/18 Carvedilol 25 mg PO BID 04/02/18 Cinnamon Bark [Cinnamon] 04/02/18 Insulin Degludec [Tresiba 44 unit SUBQ DAILY 04/02/18 Flextouch U-100] Insulin Regular Human [NovoLIN R] 20 unit SUBQ Q6H 04/02/18 Iron,Carbonyl [Iron Chews] 15 mg PO 04/02/18 Loratadine 04/02/18 Metoclopramide [Reglan] 10 mg PO Q6H PRN #30 tablet 04/02/18 Multivitamin [Multivitamins] 04/02/18 [place]-3S/Dha/Epa/Fish Oil/D3 1 each PO 04/02/18 04/02/18 [[place]-3 + D Softgel] Omeprazole 20 mg DAILY 04/02/18 Pramipexole Di-HCl [Mirapex] 1 tab DAILY PM 04/02/18 Sumatriptan Succinate [Imitrex] 100 mg PO PRN 04/02/18 cloNIDine [Catapres] 0.1 mg PO DAILY 04/02/18 dilTIAZem HCl [Diltiazem 24Hr ER] 120 mg DAILY 04/02/18 Furosemide [Lasix] 20 mg PO DAILY #4 tablet 05/13/18 Isosorbide Mononitrate ER [Imdur] 60 mg PO DAILY #30 tablet 05/13/18 Ondansetron Odt [Zofran] 4 mg TL Q6H PRN #10 tablet 05/13/18 hydrALAZINE [Apresoline] 50 mg PO TID 05/13/18 Torsemide 40 mg DAILY 05/15/18 05/15/18 Promethazine Sup [Phenergan Supp] 12.5 mg OR Q8H #10 supp 09/02/18 Amoxicillin/Potassium Clav 1 each PO DAILY #7 tablet 01/14/19 [Amox-Clav 500-125 mg Tablet] Oxycodone HCl/Acetaminophen 1 each PO Q4H PRN #10 tablet 01/15/21 [Percocet 10-325 mg Tablet] - Allergies Allergies/Adverse Reactions: Allergies Allergy/AdvReac Type Severity Reaction Status Date / Time amlodipine Allergy Edema Verified 01/14/21 21:15 rosuvastatin [From Crestor] Allergy Headache Verified 01/14/21 21:15 Sulfa (Sulfonamide Allergy Rash Verified 01/14/21 21:15 Antibiotics) tetracycline Allergy Rash Verified 01/14/21 21:15 trazodone Allergy Unknown Verified 01/14/21 21:15 - Social History Does the pt smoke?: No Smoking Status: Never smoker Does the pt drink ETOH?: No Does the pt have substance abuse?: No - Immunizations Immunizations are current?: Yes - POLST Patient has POLST: No PD ED PE NORMAL - Vitals Vital signs reviewed: Yes - General General: Alert and oriented X 3, No acute distress, Well developed/nourished - HEENT HEENT: Atraumatic, PERRL, EOMI - Neck Neck: Supple, no meningeal sign - Back Back: No spinal TTP, Other (L lateral lower back muscular distribution ttp) - Derm Derm: Normal color, Warm and dry - Extremities Extremities: No deformity, Other (R shoulder discomfort but with FROM) - Neuro Neuro: Alert and oriented X 3 - Psych Psych: Normal mood, Normal affect Results - Vitals Vitals: Vital Signs - 24 hr 01/14/21 01/14/21 21:15 21:24 Temperature 37.2 C 37.1 C Heart Rate 95 95 Respiratory 16 16 Rate Blood Pressure 180/100 H 180/99 H O2 Saturation 95 95 Oxygen O2 Source Room air PD MEDICAL DECISION MAKING - ED course ED course: 55yF p/w muscular back pain s/p fall as well as R shoulder pain without deformity on xray. feeling better s/p toradol and muscle relaxer. return precautions given. plan to f/u pmd for referral to physical therapy as needed. Note that as I was discussing discharge with the patient she requested we do xrays of her hips. She has FROM BL hips and is ambulatory, but we will obtain xrays per request and to screen for osteoarthritis of the hips. Departure - Departure Disposition: 01 Home, Self Care Clinical Impression: Back pain, Fall from standing, Shoulder pain Condition: Good Instructions: ED Strain Muscle Ext Prescriptions: Oxycodone HCl/Acetaminophen [Percocet 10-325 mg Tablet] 1 each PO Q4H PRN #10 tablet PRN Reason: Pain Comments: You were seen in the emergency department for evaluation after a fall. Your x- rays did not show acute injury. You likely have a muscle strain in the right shoulder as well as in the lower back. Please return to the emergency department if you have any new or worsening symptoms or other concerns. Follow- up with primary doctor for referral to physical therapy.
[2021-01-15 00:49] VITALS: BP 165/60
--- NOTE | 2021-01-15 08:33 | XRAY Report ---
PROCEDURE: Hips 2V BILAT INDICATIONS: Bilateral hip pain TECHNIQUE: 2 views of the bilateral hips were acquired. COMPARISON: None FINDINGS: Bones: No acute fractures or dislocations. No suspicious bony lesions. The visualized pelvic ring appears intact. Soft tissues: No suspicious soft tissue calcifications or masses. IMPRESSION: No acute finding. No significant change from preliminary report. Reviewed by: Ernesto Martin MD on 01/15/2021 8:32 AM PDT Approved by: Ernesto Martin MD on 01/15/2021 8:32 AM PDT Station ID: [id number]
--- NOTE | 2021-01-15 08:34 | XRAY Report ---
PROCEDURE: Shoulder 2 View RT INDICATIONS: Right shoulder pain status post fall TECHNIQUE: 2 views of the shoulder were acquired. COMPARISON: None. FINDINGS: Bones: No fracture or dislocation. Possible resection of the distal clavicle (correlate with surgica l history). Visualized ribs appear intact. Soft tissues: No suspicious soft tissue calcifications. IMPRESSION: No acute finding. No significant change from preliminary report. Reviewed by: Ernesto Martin MD on 01/15/2021 8:33 AM PDT Approved by: Ernesto Martin MD on 01/15/2021 8:33 AM PDT Station ID: [id number]
== END 2021-01-15 00:47 | disposition home or self-care (01) ==
LOC: ED 21:04
DX: M54.9 Dorsalgia, unspecified (principal); M25.511 Pain in right shoulder
CPT/HCPCS: 73030; 73521; 96372; 99284; A9270